=== PATIENT | female | born 1960 | race Caucasian/White ===

== ENCOUNTER 2019-07-18 01:22 | Day surgery (SDC) | payer BC, SELFPAY ==
[2019-07-15 13:57] VITALS: BMI 27.4
[2019-07-18 08:31] VITALS: BP 105/70; PULSE 74; RESP 16; TEMP 36.4; O2SAT 98
--- NOTE | 2019-07-18 08:41 | PM.IMHP ---
H&P: HPI History of Present Illness Chief complaint: Neoplasm screening Narrative: Chanel Gutiérrez is a 59 year old female presents for screening colonoscopy. Last colonoscopy was in 2008 and had internal hemorrhoids noted. She denies any acute bowel habit changes, diarrhea, constipation, melena, hematochezia, or abdominal pains. She does have rectal pressure at times but does not feel it often. Deneis any upper GI symptoms. Denies family hx of GI maligancies. Review of Systems Review of Systems: All systems reviewed & are unremarkable except as noted in HPI and below PMFSH Past Medical History Medical History (Updated 07/18/19 @ 08:43 by Charlene Reno, [employer]OTH TE[employer]) HLD (hyperlipidemia) Tear of medial meniscus of right knee Surgical History Surgical History (Updated 07/18/19 @ 08:43 by Charlene Reno, [employer]OTH [employer]) History of knee surgery Hx of colonoscopy Family History Family History (Updated 07/18/19 @ 08:44 by Charlene Reno, [employer]OTH [employer]) Sibling Family history of scoliosis Father HLD (hyperlipidemia) Other Family history of arthritis Social History Social History Smoking status: Never smoker Second hand tobacco smoke exposure: Yes Alcohol intake: never Gender identity (if verbalized by the patient): Female Meds Home Medications and Allergies Home Medications Medication Instructions Recorded Confirmed Type simvastatin 20 mg tablet 20 mg PO DAILY 04/24/19 07/18/19 History albuterol sulfate 90 mcg/actuation 1 inhalation INHALATION Q4H #1 04/30/19 07/15/19 Rx aerosol inhaler device Allergies Allergy/AdvReac Type Severity Reaction Status Date / Time Sulfa (Sulfonamide Allergy Unknown rash Verified 07/18/19 08:30 Antibiotics) Vital Signs Vital Signs - 24 hr 07/18/19 08:31 Temperature 36.4 C Pulse Rate 74 Respiratory Rate 16 Blood Pressure 105/70 Pulse Oximetry 98 Exam Const: General: cooperative, healthy appearing, comfortable, alert and awake Nutritional Appearance: average body habitus Orientation/consciousness: oriented to person, oriented to place, oriented to time and patient oriented x3 Limitations: no limitations HENMT: Head: normal to inspection and normocephalic Mouth: Yes Normal oral and palatal mucosa present and Yes moist mucous membranes Neck: Neck: normal visual inspection, supple and no JVD Carotids: no bruits Resp: Effort & Inspection: normal respiratory effort and no respiratory distress Auscultation: clear to auscultation bilaterally Cardio: Rate: regular rate Rhythm: regular rhythm Heart sounds: S1 normal heart sound present, S2 normal heart sound present, no gallops, no murmurs and no rubs GI: Inspection: normal to inspection GI Palp: No abdominal tenderness and No No hepatosplenomegaly present Percussion: Yes normal to percussion Auscultation: normal bowel sounds Rectal Exam: deferred Skin: General skin exam: normal color Lesions: no lesions Rashes: no rashes Neuro: General: oriented to person, oriented to place, oriented to time, patient oriented x3 and moves all extremities Cognition (Neuro): normal cognition Speech: normal speech Gait exam (Neuro): Normal gait present Extrem: General: normal to inspection Left lower extremity: no joint enlargement (mild edema noted to right knee) Psych: Appearance: grossly normal Mental Status: mental status grossly normal Speech and movement: Normal speech and movement present Affect: normal affect Attitude: cooperative Thought process: Normal thought process present Assessment and Plan Assessment and plan (1) Colon cancer screening: Code(s): Z12.11 - Encounter for screening for malignant neoplasm of colon Status: Acute Assessment and Plan: Very pleasant 59 yo here for screening colonoscopy to assess for neoplasms and polyps (2) HLD (hyperlipidemia): Code(s): E78.5 - Hyperlipidemia, unspecified S
[2019-07-18] MEDS: LACTATED RINGERS 1,000 ML 150 ML IV CONT (08:42)
[2019-07-18] MEDS: GENTAMICIN 80MG/SOD CHL 50 ML 80 MG/50 ML BAG 100 MG IVPB (08:55)
--- NOTE | 2019-07-18 09:00 | P.PNAN_ITS ---
Anes - Initial Pre Proc Eval Procedure: Operation Date: 07/18/19 09:30 Proposed Procedures p Screening Colonoscopy - Sreedhar Gonzalez DO Date/Time: 07/18/19 09:00 Surgeon: Sreedhar Gonzalez DO Pre Op Diagnosis: Neoplasm screening Patient Data Age: 59 Gender: F Height: 5 ft 8 in Weight: 79.8 kg Last Vital Signs Temp 97.6 F 07/18/19 08:31 Pulse 74 07/18/19 08:31 Resp 16 07/18/19 08:31 BP 105/70 07/18/19 08:31 Pulse Ox 98 07/18/19 08:31 Allergies Allergy/AdvReac Type Severity Reaction Status Date / Time Sulfa (Sulfonamide Allergy Unknown rash Verified 07/18/19 08:30 Antibiotics) Home Medications Medication Instructions Recorded Confirmed Type simvastatin 20 mg tablet 20 mg PO DAILY 04/24/19 07/18/19 History albuterol sulfate 90 mcg/actuation 1 inhalation INHALATION Q4H #1 04/30/1907/06 Rx aerosol inhaler device Patient hx anesthesia problems: none Family hx anesthesia problems: none PMFSH Past Medical History Medical History (Updated 07/18/19 @ 08:43 by Charlene Reno, INDUSTRIAL COMM[employer]CIAL GROUNDSK[employer]PER) HLD (hyperlipidemia) Tear of medial meniscus of right knee Surgical History Surgical History (Updated 07/18/19 @ 08:43 by Charlene Reno, IND[employer]DS[employer]PER) History of knee surgery Hx of colonoscopy Family History Family History (Updated 07/18/19 @ 08:44 by Charlene Reno, INDUSTRI[employer] COMMER[employer] GROUNDSK[employer]PER) Sibling Family history of scoliosis Father HLD (hyperlipidemia) Other Family history of arthritis Social History Social History Smoking status: Never smoker Second hand tobacco smoke exposure: Yes Alcohol intake: never Gender identity (if verbalized by the patient): Female Anes - Eval Final PreProcedure Day of Procedure 07/18/19 09:00 Patient weight: normal Heart: regular rate and rhythm Lungs: clear to auscultation Airway: Mallampati scale class II Neurological: alert and oriented Last oral intake: >/= 8 hours ASA classification: II Emergent: no Anesthetic plan: proceed Anesthesia type and monitoring: general GIVS and standard monitoring Informed Consent: The patient's anesthetic plan and its attendant risks and benefits were discussed with the patient/family/POA. Questions were solicited and answers provided to the satisfaction of the patient/family/POA.
[2019-07-18] MEDS: AMPICILLIN 2 GM/NS 100 ML 2 GM/100 ML BAG IVPB (09:10)
[2019-07-18 09:47] VITALS: BP 102/76; PULSE 77; RESP 21; O2SAT 98
[2019-07-18 09:57] VITALS: BP 129/78; PULSE 79; RESP 20; O2SAT 98
[2019-07-18 10:07] VITALS: BP 125/85; PULSE 69; RESP 15; O2SAT 97
== END 2019-07-18 10:26 | disposition home or self-care (01) ==
PROVIDERS: PCP Family Medicine; Visit Provider Internal Medicine Gastroenterology
PROC: 0DJD8ZZ Inspection of Lower Intestinal Tract, Via Natural or Artificial Opening Endoscopic (ICD-10-PCS; CPT 45378; principal; 2019-07-18 09:30)
DX: Z12.11 Encounter for screening for malignant neoplasm of colon (principal); D12.2 Benign neoplasm of ascending colon; K57.30 Diverticulosis of large intestine without perforation or abscess without bleeding; K64.8 Other hemorrhoids; E78.5 Hyperlipidemia, unspecified
CPT/HCPCS: 45385; 88305; J0290; J1580; J2704; J7120

== ENCOUNTER → 2019-08-01 10:40 | Outpatient (CLI) | payer BC, SELFPAY ==
--- NOTE | ~2019-08-01 | DEXA_ITS ---
Bone Density Report Name: Chanel Gutiérrez Age: 59 Sex: Female Ethnicity: White Date of : 1960 Indication: postmenopausal; screening for osteoporosis; height loss; Referring Provider: Emily, Renata Study: Bone densitometry was performed. Exam Date: August 01, 2019 Accession number: [id number] Bone Density: Region BMD T-score Z-score Classification AP Spine (L1-L4) 1.033 -0.1 1.4 Normal Femoral Neck (Left) 0.709 -1.3 0.1 Osteopenia Total Hip (Left) 0.795 -1.2 -0.2 Osteopenia Femoral Neck (Right) 0.673 -1.6 -0.2 Osteopenia Total Hip (Right) 0.762 -1.5 -0.4 Osteopenia Total Hip Mean 0.779 -1.4 -0.3 Osteopenia World Health Organization criteria for BMD impression classify patients as: Normal (T-score at or above -1.0), Osteopenia (T-score between -1.0 and -2.5), or Osteoporosis (T-score at or below -2.5). 10-year Fracture Risk(1): Major Osteoporotic Fracture 8.3% Hip Fracture 0.7% Reported Risk Factors: [place] (), Neck BMD=0.673, BMI=28.0 (1) FRAX(R) Version 3.08. Fracture probability calculated for an untreated patient. Fracture probability may be lower if the patient has received treatment. Previous Exams: Region Exam Age BMD T-score BMD Change BMD Change Date g/cm2 vs Baseline vs Previous AP Spine(L1-L4) 08/01/2019 59 1.033 -0.1 -0.166* -0.086* 05/26/2015 55 1.119 0.7 -0.080* -0.080* 05/09/2012 52 1.199 1.4 Total Hip(Left) 08/01/2019 59 0.795 -1.2 -0.156* -0.090* 05/26/2015 55 0.885 -0.5 -0.066* -0.066* 05/09/2012 52 0.951 0.1 Total Hip(Right) 08/01/2019 59 0.762 -1.5 -0.250* -0.159* 05/26/2015 55 0.921 -0.2 -0.091* -0.091* 05/09/2012 52 1.012 0.6 *Denotes significance at 95% confidence level, LSC for AP Spine = 0.022 g/cm2, LSC for Total Hip = 0.027 g/cm2 Clinical Information Provided by Patient: Has used the following medications: Vitamin D Patient maximum height was 68 Menopause Age: 52 No regular weight bearing exercise Does not regularly consume dairy products Onset of menses at age 11 Number of children 0 Impression: The patient has low bone mass, based on the Right Femoral Neck T-score. The patient has an estimated ten-year risk of hip fracture of 0.7% and an estimated ten-year risk of major fracture of 8.3%, based on the WHO FRAX algorithm. The BMD for
--- NOTE | ~2019-08-01 | MM_ITS ---
EXAMINATION: MM screening [facility] BI w ameya HISTORY: Screening mammogram TECHNIQUE: Craniocaudal and mediolateral oblique 3-D tomosynthesis images were obtained and synthetic 2-D images were generated. CAD analysis was submitted and interpreted. COMPARISON: Comparison to multiple prior studies sequentially, with oldest reviewed study dated 05/05. BREAST PARENCHYMAL COMPOSITION: There are scattered areas of fibroglandular density. FINDINGS: There is no evidence of suspicious mass, calcification, or architectural distortion to sugg est malignancy in either breast. There has been no suspicious interval change. IMPRESSION: 1. No mammographic evidence of malignancy. 2. Recommend routine screening mammography in one year. BI-RADS Category 1: Negative Reviewed, dictated and finalized at location A. BALER
== END ==
PROVIDERS: PCP Nurse Practitioner; Visit Provider Nurse Practitioner
DX: Z12.31 Encounter for screening mammogram for malignant neoplasm of breast (principal); Z78.0 Asymptomatic menopausal state; M85.852 Other specified disorders of bone density and structure, left thigh; M85.851 Other specified disorders of bone density and structure, right thigh
CPT/HCPCS: 77063; 77067; 77080

== ENCOUNTER → 2020-11-16 10:08 | Outpatient (CLI) | payer BC, SELFPAY ==
--- NOTE | ~2020-11-16 | MM_ITS ---
EXAMINATION: MM screening [facility] BI w ameya HISTORY: Screening mammogram TECHNIQUE: Craniocaudal and mediolateral oblique 3-D tomosynthesis images were obtained and synthetic 2-D images were generated. CAD analysis was submitted and interpreted. COMPARISON: 08/01/2019, 06/26/2018, 06/06/2017 BREAST PARENCHYMAL COMPOSITION: There are scattered areas of fibroglandular density. FINDINGS: There is no evidence of suspicious mass, calcification, or architectural distortion to sugg est malignancy in either breast. There has been no suspicious interval change. IMPRESSION: 1. No mammographic evidence of malignancy. 2. Recommend routine screening mammography in one year. BI-RADS Category 1: Negative Reviewed, dictated and finalized at location A.
== END ==
PROVIDERS: Visit Provider Nurse Practitioner
DX: Z12.31 Encounter for screening mammogram for malignant neoplasm of breast (principal)
CPT/HCPCS: 77063; 77067

== ENCOUNTER → 2021-11-18 09:53 | Outpatient (CLI) | payer BC, SELFPAY ==
--- NOTE | ~2021-11-18 | DEXA_ITS ---
Bone Density Report Name: DEE COOK Age: 61 Sex: Female Ethnicity: White Date of : 1960 Indication: osteopenia; height loss; postmenopausal Referring Provider: Emily, Renata Study: Bone densitometry was performed. Exam Date: November 18, 2021 Accession number: [id number] Bone Density: Region BMD T-score Z-score Classification AP Spine (L1-L4) 0.995 -0.5 1.2 Normal Femoral Neck (Left) 0.726 -1.1 0.3 Osteopenia Total Hip (Left) 0.798 -1.2 0.0 Osteopenia Femoral Neck (Right) 0.723 -1.1 0.3 Osteopenia Total Hip (Right) 0.775 -1.4 -0.2 Osteopenia Total Hip Mean 0.787 -1.3 -0.1 Osteopenia World Health Organization criteria for BMD impression classify patients as: Normal (T-score at or above -1.0), Osteopenia (T-score between -1.0 and -2.5), or Osteoporosis (T-score at or below -2.5). 10-year Fracture Risk(1): Major Osteoporotic Fracture 7.8% Hip Fracture 0.6% Reported Risk Factors: [place] (), Neck BMD=0.723, BMI=29.2 (1) FRAX(R) Version 3.08. Fracture probability calculated for an untreated patient. Fracture probability may be lower if the patient has received treatment. Previous Exams: Region Exam Age BMD T-score BMD Change BMD Change Date g/cm2 vs Baseline vs Previous AP Spine(L1-L4) 11/18/2021 61 0.995 -0.5 -0.204* -0.038* 08/01/2019 59 1.033 -0.1 -0.166* -0.086* 05/26/2015 55 1.119 0.7 -0.080* -0.080* 05/09/2012 52 1.199 1.4 Total Hip(Left) 11/18/2021 61 0.798 -1.2 -0.153* 0.003 08/01/2019 59 0.795 -1.2 -0.156* -0.090* 05/26/2015 55 0.885 -0.5 -0.066* -0.066* 05/09/2012 52 0.951 0.1 Total Hip(Right) 11/18/2021 61 0.775 -1.4 -0.237* 0.013 08/01/2019 59 0.762 -1.5 -0.250* -0.159* 05/26/2015 55 0.921 -0.2 -0.091* -0.091* 05/09/2012 52 1.012 0.6 *Denotes significance at 95% confidence level, LSC for AP Spine = 0.022 g/cm2, LSC for Total Hip = 0.027 g/cm2 Clinical Information Provided by Patient: Has used the following medications: Vitamin D, Calcium Patient maximum height was 68 Menopause Age: 52 No regular weight bearing exercise Does not regularly consume dairy products Onset of menses at age 11 Number of children 0 Impression: The patient has low bone mass, based on the Right Total Hip T-sc
--- NOTE | ~2021-11-18 | MM_ITS ---
EXAMINATION: MM screening [facility] BI w ameya HISTORY: Screening TECHNIQUE: Craniocaudal and mediolateral oblique 3-D tomosynthesis images were obtained and synthetic 2-D images were generated. CAD analysis was submitted and interpreted. COMPARISON: Comparison to multiple prior studies sequentially, with oldest reviewed study dated 05/06. BREAST PARENCHYMAL COMPOSITION: Breast composed of scattered areas of fibroglandular density FINDINGS: There is no evidence of suspicious mass, calcification, or architectural distortion to sugg est malignancy in either breast. There has been no suspicious interval change. IMPRESSION: 1. No mammographic evidence of malignancy. 2. Recommend routine screening mammography in one year. BI-RADS Category 1: Negative Reviewed, dictated and finalized at location A.
== END ==
PROVIDERS: PCP Family Medicine; Visit Provider Nurse Practitioner
DX: Z12.31 Encounter for screening mammogram for malignant neoplasm of breast (principal); Z13.820 Encounter for screening for osteoporosis; M85.852 Other specified disorders of bone density and structure, left thigh; M85.851 Other specified disorders of bone density and structure, right thigh
CPT/HCPCS: 77063; 77067; 77080

== ENCOUNTER 2022-08-10 14:30 | Outpatient (RCR) | payer BC, SELFPAY ==
[2022-06-14 09:30] VITALS: BMI 27.6
[2022-06-14 13:36] VITALS: BMI 27.6
== END 2022-08-10 17:51 | disposition home or self-care (01) ==
LOC: ANHDMC 14:30
PROVIDERS: PCP Family Medicine; Visit Provider Physician Assistant Medical
DX: E11.9 Type 2 diabetes mellitus without complications (principal); Z71.89 Other specified counseling; Z71.3 Dietary counseling and surveillance
CPT/HCPCS: 97802; 99199; G0108; G0109

== ENCOUNTER 2022-10-20 15:03 | Outpatient (RCR) | payer BC, SELFPAY | END 2022-10-24 12:20 | disposition home or self-care (01) | LOC: ANHDMC 15:03 | PROVIDERS: PCP Family Medicine; Visit Provider Physician Assistant Medical | DX: E11.9 Type 2 diabetes mellitus without complications (principal); Z71.89 Other specified counseling | CPT/HCPCS: G0109 ==

== ENCOUNTER → 2022-11-21 10:42 | Outpatient (CLI) | payer BC, SELFPAY ==
--- NOTE | ~2022-11-21 | MM_ITS ---
EXAMINATION: MM screening [facility] BI w ameya HISTORY: Screening mammogram TECHNIQUE: Craniocaudal and mediolateral oblique 3-D tomosynthesis images were obtained and synthetic 2-D images were generated. CAD analysis was submitted and interpreted. COMPARISON: 11/18/2021, 11/16/2020, 08/01/2019 bilateral screening mammogram examinations BREAST PARENCHYMAL COMPOSITION: There are scattered areas of fibroglandular density. FINDINGS: There is a biopsy marker on the left; history of prior benign left breast biopsy in 2009. S table fibroglandular asymmetry. There is no evidence of suspicious mass, calcification, or architectu ral distortion to suggest malignancy in either breast. There has been no suspicious interval change. IMPRESSION: 1. No mammographic evidence of malignancy. 2. Recommend routine screening mammography in one year. BI-RADS Category 1: Negative Reviewed, dictated and finalized at location A.
== END ==
PROVIDERS: PCP Family Medicine; Visit Provider Nurse Practitioner
DX: Z12.31 Encounter for screening mammogram for malignant neoplasm of breast (principal)
CPT/HCPCS: 77063; 77067

== ENCOUNTER → 2022-11-21 10:44 | Outpatient (CLI) | payer BC, SELFPAY ==
--- NOTE | ~2022-11-21 | US_ITS ---
US thyroid INDICATION: Thyroid nodule TECHNIQUE: Real-time sonographic images of the thyroid gland were obtained. COMPARISON: No prior studies for comparison. FINDINGS: The right thyroid lobe measures 3.9 x 1.7 x 1.4 cm. The left thyroid lobe measures 4.4 x 1 .9 x 1.4 cm. There is a hypoechoic left thyroid mass which is mostly solid, hypoechoic, circumscribed , wider than tall without echogenic foci measuring 9 mm, TR 4. Normal vascular flow is present. IMPRESSION: 1. Left thyroid nodule measuring 9 mm, TR 4. No discrete mass identified which meet sonographic crit eria for biopsy. Reviewed, dictated and finalized at location [] IMPRESSION: 1. Left thyroid nodule measuring 9 mm, TR 4. No discrete mass identified which meet sonographic criteria for biopsy.
== END ==
PROVIDERS: PCP Family Medicine; Visit Provider Physician Assistant Medical
DX: E04.1 Nontoxic single thyroid nodule (principal)
CPT/HCPCS: 76536

== ENCOUNTER → 2023-03-03 12:38 | Outpatient (CLI) | payer BC, SELFPAY ==
--- NOTE | ~2023-03-03 | CT_ITS ---
EXAMINATION: CT soft tissue neck chest w DATE: 03/03/2023 13:45 INDICATION: Localized swelling, mass and lump, neck. TECHNIQUE: Computed tomography (CT) of the neck and chest was performed with 75 mL Omnipaque-350 intr avenous contrast. Automated exposure control and iterative reconstruction technique were employed. Th e dose-length product was 892.81 mGy-cm. COMPARISON: neck CT 12/22/15 FINDINGS: CT NECK: There are likely changes of ocular lens replacement surgeries. There is a 2.8 x 2.2 cm left supraclavicular lymph node. A skin marker overlies this area. There is mild plaque in the proximal in ternal carotid arteries with 0% stenosis relative to normal distal artery lumen diameters. There is m ucosal thickening in the paranasal sinuses. The mastoid air cells are normal. There is severe cervica l spondylosis. CT CHEST: The lungs demonstrate mild atelectasis. There is mild bronchiectasis in the inferior lungs. No pleural effusion. The heart size is normal. There are coronary artery calcifications. No pericard ial effusion. There is a 1.4 cm cyst in left kidney. There is severe thoracic spondylosis. IMPRESSION: 1. Enlarged left supraclavicular lymph node suspicious for lymphoma or metastatic disease. Ultrasound -guided core biopsy is recommended. Reviewed, dictated and finalized at location E. IMPRESSION: 1. Enlarged left supraclavicular lymph node suspicious for lymphoma or metastat ic disease. Ultrasound-guided core biopsy is recommended.
[2023-03-03 13:16] LABS: Estimated Glomerular Filt Rate > 60
== END ==
PROVIDERS: PCP Physician Assistant Medical; Visit Provider Physician Assistant Medical
DX: R22.1 Localized swelling, mass and lump, neck (principal)
CPT/HCPCS: 70491; 71260; Q9967

== ENCOUNTER 2023-09-17 12:14 | Emergency (ER) | payer BC, SELFPAY ==
[2023-09-17 12:20] VITALS: BP 119/70; PULSE 86; RESP 16; TEMP 36.6; O2SAT 99
--- NOTE | 2023-09-17 12:40 | ED.FEMALEGU ---
HPI - Female Genitourinary General Chief complaint: Urogenital-Female Stated complaint: Uti Symptoms Time Seen by Provider: 09/17/23 12:31 Source: patient and RN notes reviewed Mode of arrival: ambulatory Limitations: no limitations History of Present Illness HPI Narrative: 63-year-old female presents concern for 1 day history of 1 day history of burning, suprapubic pressure, frequency. Denies fever, body aches, chills, sweats, nausea, vomiting MD elicited complaint: UTI Related Data Allergies Allergy/AdvReac Type Severity Reaction Status Date / Time Sulfa (Sulfonamide Allergy Unknown rash Verified 09/17/23 12:25 Antibiotics) Review of Systems Review of Systems: CONSTITUTIONAL: Denies malaise, chills, sweats, or fever. CARDIOVASCULAR: Denies chest pain, palpitations, or edema. RESPIRATORY: Denies cough or dyspnea. GASTROINTESTINAL: Denies abdominal pain, nausea, vomiting, diarrhea GENITOURINARY: Reports dysuria, frequency, urgency, suprapubic pressure. Denies flank pain or hematuria. SKIN: Denies rash or itching. MUSCULOSKELETAL: Reports right back pain. Denies myalgia. All systems reviewed & are unremarkable except as noted in HPI and below PMFSH Past Medical History Medical History (Updated 09/17/23 @ 12:40 by Sneha Powell NP) HLD (hyperlipidemia) Lymphoma Follicular, dx 03/2023 Tear of medial meniscus of right knee Type 2 diabetes mellitus Surgical History Surgical History History of cataract surgery History of knee surgery Hx of colonoscopy Family History Family History Sibling Family history of scoliosis Father HLD (hyperlipidemia) Other Family history of arthritis Social History Social History Smoking status: Never smoker Second hand tobacco smoke exposure: Yes Alcohol intake: never Substance use: never Substance use type: does not use Lack of Transportation: No Lack of Food: Never True Current Housing: I Have Housing Concerned About Future Housing: No Difficulty Paying Gas/Electric Bills: No Difficulty Paying for Meds: No Currently Unemployed: No Education: High School Diploma/GED Difficulty w/ Childcare or Family Care: No Living arrangements: with family Gender identity (if verbalized by the patient): Female Sexual Orientation (if Verbalized by the Patient): Straight or Heterosexual Spiritual care concerns: No Agree to blood products: Yes Comments At time of signature, agree with nursing past medical, surgical, social and family history. There is no relevant family history pertinent to the presenting complaint Exam Narrative: GENERAL: Well-appearing, well-nourished, and in no acute distress. HEAD: Normocephalic. EYES: PERRLA, conjunctivae clear. NECK: Supple. No lymphadenopathy CHEST: Clear to auscultation. No respiratory distress. HEART: Regular rate and rhythm. ABDOMEN: Soft, nontender upon palpation, nondistended, normal active bowel sounds, no palpable or pulsatile masses, no guarding. No CVA tenderness SKIN: Warm, dry, no rash. NEURO: Alert and oriented x3. PSYCH: Normal mood and affect Course Course Emergency Course: Patient is aware of diagnosis, understands and agrees to treatment plan. Anticipatory guidance given. Patient agrees to follow-up as directed and is aware of reasons to seek care at the emergency department. Portions of this record may have been created with voice recognition software Level of Care: Express Care Visit Vital Signs Vital signs: Vital Signs Temperature 98 F 09/17/23 12:20 Pulse Rate 86 09/17/23 12:20 Respiratory Rate 16 09/17/23 12:20 Blood Pressure 119/70 09/17/23 12:20 Pulse Oximetry 99 09/17/23 12:20 Temperature 98 F 09/17/23 12:20 Pulse Rate 86 09/17/23 12:20 Respiratory Rate
== END 2023-09-17 12:43 | disposition home or self-care (01) ==
PROVIDERS: Emergency Provider Nurse Practitioner; PCP Family Medicine
DX: N39.0 Urinary tract infection, site not specified (principal); B96.20 Unspecified Escherichia coli [E. coli] as the cause of diseases classified elsewhere; E78.5 Hyperlipidemia, unspecified; E11.9 Type 2 diabetes mellitus without complications; C82.90 Follicular lymphoma, unspecified, unspecified site
CPT/HCPCS: 81003; 87077; 87086; 87088; 87186; 99213; G0463

== ENCOUNTER 2023-10-10 12:33 | Outpatient (CLI) | payer BC, SELFPAY ==
--- NOTE | ~2023-10-10 | US_ITS ---
EXAMINATION: US transvaginal DATE: 10/10/2023 12:57 INDICATION: Pelvic pain. TECHNIQUE: Multiple transvaginal sonographic images of the pelvis were obtained. COMPARISON: None. FINDINGS: The uterus measures 3.9 x 2.3 x 2.1 cm. There is a 2.1 cm intramural fibroid. There is no free fluid in the pelvis. The endometrial complex measures 4 mm in thickness. The ovaries are not visualized. IMPRESSION: 1. 2.1 cm uterine fibroid. 2. Ovaries not visualized. Reviewed, dictated and finalized at location A.
== END 2023-10-10 12:34 ==
LOC: MICIMG 12:34
PROVIDERS: PCP Nurse Practitioner; Visit Provider Nurse Practitioner
DX: R10.2 Pelvic and perineal pain (principal); D25.9 Leiomyoma of uterus, unspecified
CPT/HCPCS: 76830

== ENCOUNTER 2024-01-29 11:02 | Outpatient (CLI) | payer BC, SELFPAY ==
--- NOTE | ~2024-01-29 | MM_ITS ---
EXAMINATION: MM screening [facility] BI w ameya HISTORY: Screening TECHNIQUE: Craniocaudal and mediolateral oblique 3-D tomosynthesis images were obtained and synthetic 2-D images were generated. CAD analysis was submitted and interpreted. COMPARISON: Comparison to multiple prior studies sequentially, with oldest reviewed study dated 07/2017. BREAST PARENCHYMAL COMPOSITION: Not dense: There are scattered areas of fibroglandular density. FINDINGS: There is no evidence of suspicious mass, calcification, or architectural distortion to sugg est malignancy in either breast. There has been no suspicious interval change. IMPRESSION: 1. No mammographic evidence of malignancy. 2. Recommend routine screening mammography in one year. BI-RADS Category 1: Negative Reviewed, dictated and finalized at location B.
== END 2024-01-29 11:03 ==
LOC: MICIMG 11:02
PROVIDERS: PCP Nurse Practitioner; Visit Provider Nurse Practitioner
DX: Z12.31 Encounter for screening mammogram for malignant neoplasm of breast (principal)
CPT/HCPCS: 77063; 77067

== ENCOUNTER 2024-08-09 10:59 | Outpatient (CLI) | payer BC, SELFPAY ==
--- NOTE | ~2024-08-09 | CT_ITS ---
CT sinus wo con Ordering provider: Tequila Weaver, DETENTION OFFICER History: . Chronic sinusitis, unspecified . Comparison: None. Technique: Thin slice Scans CT of the paranasal sinuses was performed with coronal and sagittal refor matted images. No IV contrast. . Automated exposure control and iterative reconstruction technique w ere employed. The dose-length product was 297.70 mGy-cm. Findings: NASAL SEPTUM: Very Mild right nasal septal deviation. OSTEOMEATAL UNITS: Bilaterally patent. NASAL TURBINATES AND NASOPHARYNX: Normal. PARANASAL SINUSES: Right frontal sinus disease. VISUALIZED MASTOIDS: Normal as visualized. BONES: Normal. SUPERFICIAL SOFT TISSUES/VISUALIZED BRAIN PARENCHYMA: Normal. IMPRESSION: Right frontal sinus disease. Reviewed, dictated and finalized at location A. CARE ATTENDANT
== END 2024-08-09 11:00 | disposition home or self-care (01) ==
LOC: MICIMG 11:02
PROVIDERS: PCP Nurse Practitioner; Visit Provider Nurse Practitioner Family
DX: J32.1 Chronic frontal sinusitis (principal)
CPT/HCPCS: 70486

== ENCOUNTER 2024-09-04 09:35 | Outpatient (CLI) | payer BC, SELFPAY ==
--- NOTE | ~2024-09-04 | XR_ITS ---
MODIFIED ESOPHAGRAM HISTORY: Dysphagia. TECHNIQUE: Modified barium esophagram was performed on 09/04/2024. I administered fluoroscopy and perfo rmed the exam with speech pathologist. Patient was seated for lateral fluoroscopic imaging for inges tion of thin liquids, pudding, solids and quantified amounts, followed by thin liquids in uncontrolle d amounts. This was recorded on tape. A single fluoroscopic spot image was also recorded. The DAP for this procedure was 1.5 Gycm2. The amount of fluoroscopy time used during this procedure was 1.8 anirudh ned. FINDINGS: Oral stage: Adequate function. Pharyngeal stage: Transient/flash laryngeal penetration without aspiration. Cervical/esophageal stage: Adequate function. IMPRESSION: Transient/flash laryngeal penetration without aspiration. Please correlate with speech pa thologist findings and specific feeding recommendations. Reviewed, dictated and finalized at location A. IMPRESSION: Transient/flash laryngeal penetration without aspiration. Please co rrelate with speech pathologist findings and specific feeding recommendations.
--- OUTSIDE RECORDS SUMMARY | 2024-09-04 10:25 | XMS_ITS | Encounter Summary ---
Author Organization [facility] Address [address] [place] [address] Care Team Providers Care Button Puncher Name Role Phone Magi Castro MD Primary Care Provider [phone] Encounter Details Date Type Department Care Team (Late st Contact Info) Description 04/15/2021 Lab Requisition [facility] DermPath Lab [address] [place] [address] Cristofer Corbett MD [address] [place] [address] Social History Tobacco Use Types Packs/Day Years Used Date Smoking Tobacco: Never Assessed Sex and Gender Information Value Date Recorded Sex Assigned at Not on file Gender Identity Not on file Sexual Orientation Not on file documented as of this encounter Plan of Treatment Not on file documented as of this encounter Procedures Procedure Name Priority Date/Time Associated Diagnosis Comments DERMATOPATHOLOGY Routine 04/14/2021 12:0 0 AM CLAY MINER documented in this encounter Results * DERMATOPATHOLOGY (04/14/2021 12:00 AM CLAY MINER) Case Report Dermatopathology Report Case: [id number] Authorizing Provider: Cristofer Corbett MD Collected: 04/14/2021 12:00 AM Ordering Location: [facility] D[facility]Path Lab Received: 04/15/2021 12:53 PM Pathologist: Alisson Grace MD Specimens: A) - Skin, midline lumbar back B) - Skin, left para lumbar back 2:24 PM [facility] Final Diagnosis Specimen A. SKIN, midline lumbar back: EPIDERMOID CYST (L72.0) Specimen B. SKIN, left para lumbar back: DILATED PORE OF NIKKI (L70.8) 2:24 PM [facility] DERMATOPATHOLOGY LABORATORY Clinical History A-B: R/O neoplasm. 2:24 PM [facility] DERMATOPATHOLOGY LABORATORY Gross Description Specimen A: Received is one formalin filled container labeled with the patient's name and designated midline lumbar back. The specimen consists of a punch biopsy measuring [id number], bisected. Jar 0. Specimen B: Received is one formalin filled container labeled with the patient's name and designated left para lumbar back. The specimen consists of a punch biopsy measuring [id number], bisected. Jar 0. 2:24 PM [facility] DERMATOPATHOLOGY LABORATORY Microscopic Description Specimen A. SKIN, midline lumbar back: Within the dermis, there is a space lined by epithelium that resembles normal epidermis and the infundibular portion of the hair follicle. Specimen B. SKIN, left para lumbar back: There is a central, broad epidermal invagination lined by epithelium with a prominent rete pattern. 2:24 PM [facility] DERMATOPATHOLOGY LABORATORY Disclaimer An external and internal positive and negative controls are appropriate for the histochemical, immunohistochemical and immunofluorescence stain(s) in this case (if any), except where stated explicitly. The performance characteristics of the stain(s) cited in this report were developed and its performance characteristic determined by the Dermatopathology Laboratory at [facility], directed by Dr. Augustina Grace. These tests need not be, and therefore are not, approved by the [place] Food and Drug Administration. The tests are used for clinical purposes. Billing Codes Specimen Charges Stain Charges 11805 42523 1 1 2:24 PM [facility] Embedded Images 2:24 PM [facility] Pathology/Cytology TISSUE SPECIMEN FROM SKIN / Unknown 04/14/2021 04/15/2021 12:53 PM C[facility]ER Miscellaneous samples (specimen) TISSUE SPECIMEN FROM SKIN / Unknown 04/14/2021 04/15/2021 12:53 PM C[facility]ER Cristofer Corbett MD LAB - PATHOLOGY/CYTO LOGY [facility] DERMATOPATHOLOGY LABORATORY [facility] - Department of Dermatology [facility] [address] [place] [address], [address] [phone] documented in this encounter Visit Diagnoses Not on filedocumented in this encounter Care Teams Button Puncher Relationship Specialty Start Date End Date Magi Castro MD [address] [place] [address] PCP - General 07/19/19 documented as of this encounter
--- OUTSIDE RECORDS SUMMARY | 2024-09-04 10:25 | XMS_ITS | Data Portability ---
Author Organization [facility], Main Office Address [address] [place] [address] Care Team Providers Care Shipping And Receiving Supervisor Name Role Phone ANNIA MANRIQUE Primary Care Provider [phone] ANNIA MANRIQUE Referring Provider [phone] Assessment No assessment recorded. Plan of Treatment Reminders Order Date Submit Date Provider Last Modified By Organization Details Last Modified Time Details Appointments Procedure 15 2024 09:30A M Flaco Muse MD Not available Not available Not available Post-Op 15 2024 10:00A M DIEGO Hernández Not available Not available Not available Lab None recorded. Referral None recorded. Procedures None recorded. Surgeries endoscopy , nasal/sin us, with frontal sinus explorati on (SURG) 2024 025 Not available 08/28/2024 09:46:12 Imaging None recorded. Medication Orders Medrol (Corbin) 4 mg tablets in a dose pack [address] [facility] [place], [address], 08/22/2024 08:55:57 cefdinir 300 mg capsule [address] [facility] [place], [address], 08/22/2024 08:55:54 Diflucan 150 mg tablet 2024 025 [facility] [address] [place], [address], 07/31/2024 15:12:11 Patient TargetsNo targets recorded. Patient Instructions Encounter Date Encounter Id Patient Instructions Last Modified By Organization Details Last Modified Time 07/31/2024 [id number] Patient prescrib ed Medrol Dosepak and cefdinir for antimicrobial coverage and inflammation reduction. She will have a sinus CT completed. We will follow up when those results become available. Not available 07/31/2024 15:12:42 Reason for Referral None Reported. Results Created Date Observation Date Name Description Value Unit Range Abnormal Flag Note LastModifiedBy Organization Detail LastModifiedTime 08/20/1908/09/2024 CT, sinus es, w/o contr ast No observ ation record ed. [facility] [address], [place], [address], 08/19/2024 11:01:10 Result Notes None recorded. Problems Name Problem SNOMED Code Status Onset Date Resolution Date Notes Provider Name and Address Organization Details Recorded Time Disorder of bursa of shoulder region 58882477 Active Not Available [facility] 3 13:30:42 Chronic sinusitis 98606081 Active 2024 Tequila Washington RN null, [facility] [employer] 5 15:04:45 Chronic sinusitis 14090958 Active 2024 DIEGO Hernández [address], [place], [address] , [facility] [employer] [facility] 5 15:11:08 Dysfunctio n of right eustachian tube 5114263198026 101 Active 2024 DIEGO Hernández [address], [place], [address] , [employer] [facility] 5 15:12:13 Chronic frontal sinusitis 83748139 Active 2024 Flaco Muse MD [address], [place], [address] , [facility] [employer] [facility] [employer] [facility] 5 14:32:43 Dysphagia 49341964 Active 2024 Flaco Muse MD [address], [place], [address] , [facility] [employer] 14:32:50 Problem Notes None recorded. Procedures Surgical History None recorded. Imaging Results Imaging Date Name Status LastModified by Organiz ation Details LastModified Time 08/09/2024 CT, sinuses, w/o contrast completed [facility] [address], [place], [address], 08/19/2024 11:01:10 Procedure Notes None recorded. Medical Equipment None Reported. Allergies Allergen ID Allergen Name Allergen Category Reaction Reaction Severity Criticality Documentation Date Start Date Code Code System Note Provider Name and Address Organization Details Recorded Time 00590 Substance with sulfonami de structure and antibacte rial mechanism of action (substanc e) medicatio n Not available Not available Not available 07/31/2024 78990 8003 SNOMED RASH A CHILD Tequila Washington RN [facility], [facility] [employer] [facility] 14:33:19 Medications Name Sig Start Date Stop Date Status Note LastModified by Organization Details LastModified Time fluconazole 150 mg tablet TAKE 1 TABLET BY MOUTH ONCE DAILY active Not Available Not Available No t Available prednisone 20 mg tablet 07/31 completed Not Available Not Available Not Available clobetasol 0.05 % topical cream APPLY TO THE AFFECTED AREA(S) ONCE WEEKLY 07/31 completed Not Available Not Available Not Available valacyclovi r 500 mg tablet TAKE 1 TABLET BY MOUTH TWICE DAILY FOR 3 DAYS 07/31 completed Not Available Not Available Not Available simvastatin 20 mg tablet TAKE 1 TABLET BY MOUTH DAILY active Not Available Not Available No t Available estradiol 0.01% (0.1 mg/gram) vaginal cream INSERT 1 GRAM VAGINALLY TWICE WEEKLY 07/31 completed Not Available Not Available Not Available levofloxaci n 750 mg tablet TAKE 1 TABLET BY MOUTH ONCE DAILY FOR 10 DAYS 07/31 completed Not Available Not Available Not Available methylpredn isolone 4 mg tablets in a dose pack TAKE BY MOUTH DIRECTED ON INSIDE OF PACKAGE 08/22 completed Not Available Not Available Not Available cefdinir 300 mg capsule TAKE 1 CAPSULE BY MOUTH EVERY 12 HOURS FOR 10 DAYS 08/22 completed Not Available Not Available Not Available amoxicillin 875 mg-potassiu m clavulanate 125 mg tablet TAKE 1 TABLET BY MOUTH EVERY 12 HOURS FOR 10 DAYS 07/31 completed Not Available Not Available Not Available nitrofurant oin monohydrate /macrocryst als 100 mg capsule TAKE 1 CAPSULE BY MOUTH TWICE DAILY WITH FOOD FOR 5 DAYS 07/31 completed Not Available Not Available Not Available ProAir HFA 90 mcg/actuati on aerosol inhaler 07/31 completed Not Available Not Available Not Available Paxlovid 300 mg (150 mg x 2)-100 mg tablets in a dose pack TAKE 3 TABLETS TOGETHER (TWO 150 MG NIRMATREL VIR TABLETS AND ONE 100 MG RITONAVIR TABLET) BY MOUTH TWICE DAILY FOR 5 DAYS. 07/31 completed Not Available Not Available Not Available Vitals Date Recorded Body weight Body mass index (BMI) Body height Body temperature Provider Name and Address Organization Details Last Updated DateTime 07/31/2024 25983.93 g 26.2 kg/m2 170.18 cm 98 [degF] Tequila Washington RN [facility] [employer] [facility] 07/31/2024 14:36:52 Date Recorded Body height Body mass index (BMI) Body weight Body temperature Provider Name and Address Organization Details Last Updated DateTime 08/22/2024 170.18 cm 26.3 kg/m2 73763.52 g 97.1 [degF] Isa Staples [facility] [employer] [facility] 08/22/2024 14:09:04 Social History Question Answer Notes LastModified by Organizat ion Details LastModified Time Tobacco Smoking Status Never Smoker Tequila Washington RN [facility], [facility] [employer] [facility] 07/31/2024 14:34:34 What Is Your Level Of Alcohol Consumption? None Information not available 07/31/2024 Sex: Unknown Functional Status None recorded. Mental Status None recorded. Family History Relationship Description Onset Age of this Age Resolved Age Notes LastModified by Organization Details LastModified Time Brother Pain of ear Not avail able 07/31/2024 14:32:16 Medical History No medical history recorded. Gynecological HistoryNo gynecological history recorded. Obstetrics History GPAL:G 0 P 0 0 0 0 Past Encounters Encounter ID Performer Location Encounter Start Date Encounter Closed Date Diagnosis/Indication Diagnosis SNOMED-CT Code Diagnosis ICD10 Code Diagnosis Note [id number] DIEGO Hernández [facility] [place] [address] [place] [address] 07/31/2024 14:15:14 07/31/2024 15:13:20 Chronic sinusitis 96656496 J32.9 Dysfunctio n of right eustachian tube 0498892353 828438 H69.91 [id number] Flaco Muse MD [facility] [place] [address] [place] [address] 08/22/2024 14:01:08 08/28/2024 15:26:22 Chronic frontal sinusitis 34343616 J32.1 Dysphagia 70006139 R13.1 0 Health Concerns Section Related Observation LastModified by Organization Detai ls LastModified Time None Recorded Concern Status LastModified by Organization Details LastModified Time None Recorded Advance Directives Directive None Recorded Payers Encounter Date Sequence Insurance Name Policy Number Policy Freedman Covered Member ID Freedman Member ID Guarantor Name 07/31/2024 1 [place] [id number] Lance Gutiérrez [id number] Chanel Gutiérrez 08/22/2024 1 [place] [id number] Lance Gutiérrez [id number] Chanel Gutiérrez Notes Date Note Type Note Provider Name and Address Organization Details Recorded Time 07/31/2024 text/html This patient has a past medical history significant for lymphoma. She presents to the office with a complaint of epistaxis intermittently that began on 07/13/2024. She reports that the episodes occur from her right nostril and have last anywhere from 10-20 minutes. States that her last epistaxis episode was yesterday. She also does report PND that has been present for years with associated sinus pressure. She reports blowing her nose in which a membrane extruded. She also reports right otalgia. she does report use saline nasal spray and Ice packs on the bridge of the nose.denies use of any intranasal corticosteroids. She has not been on any recent steroids and/or antibiotics. She has not had any recent imaging done. DIEGO Hernández [address], [place], [address], [employer] 07/31/2024 15:12:46 08/22/2024 text/html this patient has had epistaxis and a sinus CT demonstrated right frontal sinusitis and a very mild septal deviation. In addition she reports dysphagia for pills and some solids. Flaco Muse MD [address], [facility] [address], [place], [address], [employer] 08/22/2024 14:33:27 OBGyn Episode No OBEpisode recorded.
--- OUTSIDE RECORDS SUMMARY | 2024-09-04 10:25 | XMS_ITS | Clinical Summary ---
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 Gender Identity Not on file Sexual Orientation Not on file Plan of Treatment Health Maintenance Due Date Last Done Comments DEXA Bone Density 1960 Hepatitis C Virus (HCV) Screening 1960 TdaP Immunization 1958 Pap Smear 1979 Cervical Cancer Screening (CCS) 01/22/1988 HPV/Cotest 01/22/1988 Colonoscopy 2003 Colorectal Cancer Screening 2003 Cologuard 01/22/2008 Immunochemical Fecal Occult Blood 01/22/2008 Mammogram 01/22/2008 Pneumococcal Immunization (5 0+ years) (1 of 1 - PCV) 01/22/2008 Zoster Immunization (1 of 2) 01/22/2008 Influenza Immunization (#1) 2024 SARS-COV-2 Immunization (1 - 2023-25 season) 2024 Respiratory Syncytial Virus (RSV) Immunization (Adult) (1 - 1-dose 75+ series) 2033 Hepatitis B Immunization Aged Out No longer eligible based on patient's age to complete this topic Meningococcal Immunization (ACWY) Aged Out No longer eligible based on patient's age to complete this topic Rotavirus Immunization Aged Out No lo nger eligible based on patient's age to complete this topic Insurance [facility] Care Teams Help Desk Internship Relationship Specialty Start Date End Date Magi Castro MD [address] [id number] PCP - General Family Medicine 04/24/19 Erin Garcia MD [address] [place] [address] Obstetrics & Gynecology 04/24/19
--- OUTSIDE RECORDS SUMMARY | 2024-09-04 10:25 | XMS_ITS | Continuity of Care Document ---
Author Organization [facility] Address [address] [place] [address] [address] [place] [address] Phone Care Team Providers Care Vinyl Flooring Installer Name Role Phone Perez BECKWITH, Wood Unavailable Unavaila ble Procedures Procedure Date CATARACT SURG W/IOL, 1 STAGE POSTOP FOLLOW-UP VISIT CATARACT SURG W/IOL, 1 STAGE OFFICE/OUTPATIENT VISIT, [facility] OPHTHALMIC BIOMETRY Advance Directives Directive Yes / No Effective Date File Name No Information Encounters Encounter Description Practice Location Reason(s) For Visit Diagnoses Date Provider Providers Copied on Encounter [facility], [address] [place] [address], [id number], [place] tel:[phone] [facility] No Information 7 Perez Muir. [address] [facility], [address], [place], [place], [id number], [place]. tel:[phone] Referring Provider: Wood luong, [address], [place], [address] . tel:[phone] [facility], [address] [place] [address], [id number], [place] tel:[phone] [facility] glare (chief complaint) Age-related nuclear cataract, left eyePresence of pseudophakia 7 Perez Muir. [address], [address], [place], [place], [id number], [place]. tel:[phone] Referring Provider: Wood luong, [address], [place], [address] . tel:[phone] [facility], [address] [place] [address], [id number], tel:[phone] [facility] No Information 7 Perez Wood. [address], [address], [place], [id number], . tel:[phone] Referring Provider: Wood luong, [address], [place], [address] . tel:[phone] OFFICE/OUTPA TIENT VISIT, [facility], [address] [place] [address], [id number], tel:[phone] [facility] No Information 7 Krlucaamy Wood. [address], [address], [place], [place], [id number], . tel:[phone] Referring Provider: Wood luong, [address], [place], [address] . tel:[phone] Family History Family Member Type Diagnosis Age At Onset No Information Payers Payer name Insurance type Covered constitution party ID Authoriza tion(s) No Information Social History Type Description Quantity Date Captured Comments Sex Female Smoking Status No Information Chief Complaint And Reason For Visit No Information Reason For Referral Reason For Referral No Information History Of Present Illness Encounter Date Complaint History Of Prese nt Illness glare The 57 year old female presents for evaluation of glare in the right eye and left eye. It started about 1 year(s) ago. It affects OS. The symptom is constant. The condition is significant. Pt C/O glare and bright being extremely bothersome at night. Pt is here today for repeat IOL measurements. S/P PC IOL OD. Functional Status Date Functional Assessmen t No Information Instructions Date Instruction Additional Infor mation Impression/Plan - Di scussed all risks, benefits, procedures and recovery. Patient understands changing glasses will not improve vision. Patient desires to have surgery, recommend phacoemulsification with intraocular lens.Standard Distance OS Related to Age-related nuclear cataract, left eye Impression/Plan - St able will continue to observe. Related to Presence of pseudophakia Follow up - RTO for surgery Assessments Type Assessment Date No Information Patient Care Teams Name Effective Dates (start - stop) Status Members No Information
--- OUTSIDE RECORDS SUMMARY | 2024-09-04 10:25 | XMS_ITS | Clinical Summary ---
Author Organization [facility] Address [address] [place] [address] Care Team Providers Care Clay Processing Factory Worker Name Role Phone Magi Castro MD Primary Care Provider [phone] Source Comments [facility],non-owned Affiliates and Associated Physician Practices is amultiple site organization consisting of ambulatory clinics and hospital sitesin [place], [place], [place] and [place]. This disclosure is being madepursuant to the Care Everywhere program and may not contain all information available regarding this patient. Last updated 18.[facility] [employer] Social History Tobacco Use Types Packs/Day Years Used Date Smoking Tobacco: Never Assessed Sex and Gender Information Value Date Recorded Sex Assigned at Not on file Gender Identity Not on file Sexual Orientation Not on file Plan of Treatment Health Maintenance Due Date Last Done Comments BONE DENSITY TESTING 1960 COLOGUARD (AGES 45-75) - COL ON CA SCREENING 1958 COLON MONITORING 1958 COLONOSCOPY - COLON CA SCREENING 1958 CT COLONOGRAPHY - COLON CA SCREENING 1958 Colorectal Cancer Screening 1958 FIT - COLON CA SCREENING 1958 FLEX SIG - COLON CA SCREENING 1958 LIPID TESTING 1958 MAMMOGRAM 1958 HEPATITIS C SCREENING 01/17/1976 DTAP/TDAP/TD VACCINES (1 - Tdap) 1977 PNEUMOCOCCAL VACCINE 50+ (1 of 1 - PCV) 01/22/2008 ZOSTER VACCINE (1 of 2) 01/22/2008 COVID-19 VACCINE ( - 2023-2 5 season) 2024 INFLUENZA VACCINE (#1) 2024 DEPRESSION SCREENING 06/05/2024 Respiratory Syncytial Virus (RSV) Vaccine Pt: or over 60 yrs (1 - 1-dose 75+ series) 2033 HEPATITIS B VACCINE Aged Out No longe r eligible based on patient's age to complete this topic HIB VACCINE Aged Out No longer eligi ble based on patient's age to complete this topic HPV VACCINE Aged Out No longer eligi ble based on patient's age to complete this topic MENINGOCOCCAL (Group B) VACC INE SHARED DECISION-MAKING Aged Out No longer eligibl e based on patient's age to complete this topic MENINGOCOCCAL GROUPS A/C/Y/W VACCINE Aged Out No longer eligible b ased on patient's age to complete this topic Care Teams [employer] Processing Factory Worker Relationship Specialty Start Date End Date Magi Castro MD [address] [place] [address] PCP - General 07/19/19
--- OUTSIDE RECORDS SUMMARY | 2024-09-04 10:25 | XMS_ITS | Referral Summary ---
Author Organization [facility] Address [address] [place] [id number] Care Team Providers Care Supervisor Industrial Garment Name Role Phone Magi Castro MD Primary Care Provider [phone] Allergies Active Allergy Reactions Criticality Noted Date Comments Sulfa (Sulfonamide Antibiotics) Rash Medium 01/04 Medications simvastatin (ZOCOR) 20 mg tabletIndicatio ns:hyperlipidem ia Take 20 mg by mouth nightly 8 Active cholecalciferol (VITAMIN D-3) 1,000 unitIndications :Prevention of Vitamin D Deficiency Take 2,000 Units by mouth nightly Active clobetasoL (TEMOVATE) 0.05 % ointment APPLY TO THE AFFECTED AREA(S) ONCE EVERY 7 DAYS 0 Active COQ10, UBIQUINOL, ORAL 4 Active tretinoin (RETIN-A) 0.025 % cream APPLY PEA SIZE AMOUNT OF CREAM TOPICALLY TO FACE ONCE DAILY AT BEDTIME 1 Active Active Problems Problem Noted Date Diagnosed Date Primary osteoarthritis of left knee 03/25/2019 Overview (03/25/2019): Added automatically from request for surgery [id number] Primary osteoarthritis of right knee 03/25/2019 Overview (04/26/2019): Added automatically from request for surgery [id number] Primary osteoarthritis of both knees 05/07/2018 Effusion of left knee 05/07/2018 Social History Tobacco Use Types Packs/Day Years Used Date Smoking Tobacco: Never Smokeless Tobacco: Never Alcohol Use Standard Drinks/Week Comments Not Currently 0 (1 standard drink = 0.6 oz pur e alcohol) Comments No Sex and Gender Information Value Date Recorded Sex Assigned at Not on file Legal Sex Female 11:32 AM CERTIFIED NURSE MIDWIFE Gender Identity Female 06/29/2021 12:21 PM CERTIFIED NURSE MIDWIFE Sexual Orientation Not on file 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 Not on file Not on file Last Filed Vital Signs Vital Sign Reading Time Taken Comments Blood Pressure 120/70 05/21/2019 6:30 PM CERTIFIED NURSE MIDWIFE Pulse 68 05/21/2019 6:30 PM CERTIFIED NURSE MIDWIFE Temperature 36.4 C (97.5 F) 05/21/2019 6:30 PM CERTIFIED NURSE MIDWIFE Respiratory Rate 16 05/21/2019 6:30 PM CERTIFIED NURSE MIDWIFE Oxygen Saturation 100% 05/21/2019 6:30 PM CERTIFIED NURSE MIDWIFE Inhaled Oxygen Concentration - - Weight 84.3 kg (185 lb 12.8 oz) 022 11:02 AM CDT Height 168.3 cm (5' 6.25 ) 11/23/2021 1 1:02 AM CDT Body Mass Index 29.76 11/23/2021 11:02 AM CDT Plan of Treatment Not on file Medical Devices Implanted Type Area Diabetes Educator Device Identifier Shelf Expiration Date Model / Serial / Lot [employer] 6197-9-001 Simplex P Full Dose Radiopaque Preblend Cement Bone Tobramycin - S.0 - [id number] Implanted:Qty: 1 on 05/21/2019 by Neville Jamil MD at [facility] [employer] 08/02/2020 6197-9-00 1 / .0 / [id number] [employer] Femoral Component Implanted:Qty: 1 on 05/21/2019 by Neville Jamil MD at [facility] Right: Knee [employer] 02/21/2024 [id number] / 0 / [id number] Description:kf [employer] Tibial Baseplate Implanted:Qty: 1 on 05/21/2019 by Neville Jamil MD at [facility] Right: Knee [employer] [id number] / 0 / [id number] Description:gianfranco Pintoo Tibial Insert Implanted:Qty: 1 on 05/21/2019 by Neville Jamil MD at [facility] Right: Knee [employer] [id number] 01/14/2024 [id number] / 0 / [id number] Description:kf Explanted Type Area Diabetes Educator Device Identifier Shelf Expiration Date Model / Serial / Lot Neto Bone Pin 4.0 X 110mm Sterile - S.0 - [id number] Explanted:Qty: 1 on 05/21/2019 by Neville Jamil MD at [facility] Other - see comments [employer] / .0 / [id number] Neto Bone Pin 4 X 140mm Sterile - S.0 - [id number] Explanted:Qty: 1 on 05/21/2019 by Neville Jamil MD at [facility] Other - see comments [employer] / .0 / [id number] [employer] 6197-9-001 Simplex P Full Dose Radiopaque Preblend Cement Bone Tobramycin - [id number] Explanted:Qty: 1 on 05/21/2019 at [facility] [employer] 6197-9-00 1 / / Neto Checkpoint Kit Sterile - S.0 - [id number] Explanted:Qty: 1 on 05/21/2019 at [facility] [employer] NULL / .0 / [id number] Insurance [employer] [facility] [employer] [place] [employer] [place] Advance Directives For more information, please contact: [phone] * Full Code (Latest Code Status on File) Date Activated Date Inactivated Comments 05/21/2019 3:53 PM 05/21/2019 11:12 PM Care Teams Supervisor Industrial Garment Relationship Specialty Start Date End Date Magi Castro MD PCP - General Family Medicine 01/17/18
--- OUTSIDE RECORDS SUMMARY | 2024-09-04 10:25 | XMS_ITS | Clinical Summary ---
Author Organization [facility] Address [address] [place] [id number] Care Team Providers Care Offset Lithographic Press Setter Name Role Phone Magi Castro MD Primary Care Provider [phone] Allergies Active Allergy Reactions Criticality Noted Date [...] (03/25/2019): Added automatically from request for surgery [id number] Primary osteoarthritis of right knee 03/25/2019 Overview (04/26/2019): Added automatically from request for surgery [id number] Primary osteoarthritis of both knees 05/07/2018 Effusion of left knee 05/07/2018 Surgical History Surgery Date Site/Laterality Comments MENISCUS SURGERY 12/04/2015 - 01/03/2016 Right KNEE ARTHROSCOPY 06/05/1993 - 06/04/1994 Left TRIGGER FINGER RELEASE 06/05/2012 - 06/04/2013 Right right thumb COLONOSCOPY 06/05/2009 - 06/04/2010 Medical History Medical History Date Comments Arthritis Kidney stone Obesity Family History Medical History Relation Name Comments Arthritis Father Diabetes Father Arthritis Mother Arthritis Sister Relation Name Status Comments Father Alive Mother Alive Sister Social History Tobacco Use Types Packs/Day Years Used Date Smoking Tobacco: Never Smokeless Tobacco: Never Alcohol Use Standard Drinks/Week Comments Not Currently 0 (1 standard drink = 0.6 oz pur e alcohol) Comments No Sex and Gender Information Value Date Recorded Sex Assigned at Not on file Legal Sex Female 11:32 AM SERVICE DESK ASSOCIATE Gender Identity Female 06/29/2021 12:21 PM SERVICE DESK ASSOCIATE Sexual Orientation Not on file 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 Not on file Not on file Obstetrics History Last Filed Vital Signs Vital Sign Reading Time Taken Comments Blood Pressure 120/70 05/21/2019 6:30 PM SERVICE DESK ASSOCIATE Pulse 68 05/21/2019 6:30 PM SERVICE DESK ASSOCIATE Temperature 36.4 C (97.5 F) 05/21/2019 6:30 PM SERVICE DESK ASSOCIATE Respiratory Rate 16 05/21/2019 6:30 PM SERVICE DESK ASSOCIATE Oxygen Saturation 100% 05/21/2019 6:30 PM SERVICE DESK ASSOCIATE Inhaled Oxygen Concentration - - Weight 84.3 kg (185 lb 12.8 oz) 022 11:02 AM CDT Height 168.3 cm (5' 6.25 ) 11/23/2021 1 1:02 AM CDT Body Mass Index 29.76 11/23/2021 11:02 AM CDT Plan of Treatment Health Maintenance Due Date Last Done Comments Breast Cancer Screening-Mammogram 1958 Colon Cancer Screening-Colonoscopy 1960 Depression Screening 1958 Fall Risk Assessment 1960 Hepatitis C Screening 1960 Osteoporosis Screening-Bone Density Scan 1958 DTaP/Tdap/Td Vaccine (1 - Tdap) 1969 Hepatitis B Screening 01/22/1976 Pneumococcal vaccine 65+ (1 of 1 - PCV) 01/22/2008 Zoster Vaccine (1 of 2) 01/22/2008 Well Visit 65+ 2023 Influenza Vaccine (Season Ended) 2025 Medical Devices Implanted Type Area Gas Engineer Device Identifier Shelf Expiration Date Model / Serial / Lot [employer] 6197-9-001 Simplex P Full Dose Radiopaque Preblend Cement Bone Tobramycin - S.0 - [id number] Implanted:Qty: 1 on 05/21/2019 by Neville Jamil MD at [facility] 08/02/2020 6197-9-00 1 / .0 / [id number] [employer] Femoral Component Implanted:Qty: 1 on 05/21/2019 by Neville Jamil MD at [facility] Right: Knee [employer] 02/21/2024 [id number] / 0 / [id number] Description:kf [employer] Tibial Baseplate Implanted:Qty: 1 on 05/21/2019 by Neville Jamil MD at [facility] Right: Knee [employer] [id number] / 0 / [id number] Description:kf Neto Tibial Insert Implanted:Qty: 1 on 05/21/2019 by Neville Jamil MD at [facility] Right: Knee [employer] [id number] 01/14/2024 [id number] / 0 / [id number] Description:kf Explanted Type Area Gas Engineer Device Identifier Shelf Expiration Date Model / Serial / Lot Neto Bone Pin 4.0 X 110mm Sterile - S.0 - [id number] Explanted:Qty: 1 on 05/21/2019 by Neville Jamil MD at [facility] Other - see comments [employer] / .0 / [id number] Neto Bone Pin 4 X 140mm Sterile - S.0 - [id number] Explanted:Qty: 1 on 05/21/2019 by Neville Jamil MD at [facility] Other - see comments [employer] / .0 / [id number] [employer] 6197-9-001 Simplex P Full Dose Radiopaque Preblend Cement Bone Tobramycin - [id number] Explanted:Qty: 1 on 05/21/2019 at [facility] 6197-9-00 1 / / Neto Morrison Kit Sterile - S.0 - [id number] Explanted:Qty: 1 on 05/21/2019 at [facility] NULL / .0 / [id number] Insurance [employer] [place] [employer] [place] [facility] Advance Directives For more information, please contact: [phone] * Full Code (Latest Code Status on File) Date Activated Date Inactivated Comments 05/21/2019 3:53 PM 05/21/2019 11:12 PM Care Teams Offset Lithographic Press Setter Relationship Specialty Start Date End Date Magi Castro MD PCP - General Family Medicine 01/17/18
--- OUTSIDE RECORDS SUMMARY | 2024-09-04 10:25 | XMS_ITS | Clinical Summary ---
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 14 tablet Active Social History Tobacco Use Types Packs/Day Years Used Date Smoking Tobacco: Former Cigarettes Comments:Patient was a socia l smoker in the early 90s Comments Unknown Sex and Gender Information Value Date Recorded Sex Assigned at Not on file Legal Sex Female 8:04 AM CDT Gender Identity Not on file Sexual Orientation Not on file Last Filed Vital Signs Vital Sign Reading Time Taken Comments Blood Pressure 115/68 03/29/2023 9:08 AM CDT Pulse 71 03/29/2023 9:08 AM CDT Temperature - - Respiratory Rate - - Oxygen Saturation 98% 03/29/2023 9:08 AM CDT Inhaled Oxygen Concentration - - Weight 70 kg (154 lb 6.4 oz) 03/29/2023 9:08 AM CDT Height 168.9 cm (5' 6.5 ) 03/29/2023 9:08 AM CDT Body Mass Index 24.55 03/29/2023 9:08 AM CDT Plan of Treatment Health Maintenance Due Date Last Done Comments Colorectal Cancer Screening Colonoscopy (10 Years) 1958 Hepatitis C 01/22/1976 DTaP, Tdap and Td Vaccines (1 - Tdap) 1977 Mammogram Screening 1998 Dexa Scan (General) 2023 COVID-19 Vaccine ( - season) 2024 04/21/2022, 04/27/2021, 10/01/2020, Additional history exists RSV Immunization or 60+ Years (1 - 1-dose 75+ series) 2033 Zoster Vaccines Completed 06/23/2019, 03/13/2019 Pneumococcal Vaccine: 65+ Years Completed 02/09/2023 Meningococcal B Vaccine Aged Out No l onger eligible based on patient's age to complete this topic Meningococcal Vaccine Aged Out No alfred donna eligible based on patient's age to complete this topic RSV Immunizations Under 20 Months Aged Out No longer eligible based on patient's age to complete this topic Insurance [facility] Care Teams Lead Fire Protection Engineer Relationship Specialty Start Date End Date Martha Mariam [place] [address] PCP - General Physician [employer] 03/29/23 Nadeem Casiano MD [address] [place] [address] Consulting Physician RADIATION ONCOLOGY 03/29/23
--- OUTSIDE RECORDS SUMMARY | 2024-09-04 10:25 | XMS_ITS | Clinical Summary ---
Author Organization [email or web address] Address [address] [facility] Attn: Epic Prelude ADT [place] [phone] Care Team Providers Care Parking Inspector Name Role Phone Unavailable Primary Care Provider Unavailabl e Social History Tobacco Use Types Packs/Day Years Used Date Smoking Tobacco: Never Assessed Comments Unknown Sex and Gender Information Value Date Recorded Sex Assigned at Not on file Legal Sex Female 3:08 AM PLATE DRYING MACHINE TENDER Gender Identity Not on file Sexual Orientation Not on file Plan of Treatment Health Maintenance Due Date Last Done Comments DTAP/TDAP/TD VACCINES (1 - Tdap) 1977 FIT-DNA Q 3 years 2003 FIT/FOBT Q 1 year 2003 Flex Sig/CT Colonography Q 5 years 2003 PNEUMOCOCCAL VACCINE 50+ YEA RS (1 of 1 - PCV) 01/22/2008 ZOSTER VACCINE (1 of 2) 01/22/2008 BREAST CANCER SCREENING 11/16/2021 11/17/19 21, 11/16/2020, 08/01/2019, Additional history exists INFLUENZA VACCINE (#1) 2024 COLORECTAL SCREENING 07/18/2029 07/18/2019 Colorectal Cancer Screening 07/18/2029 RSV VACCINE (60+ or ) (1 - 1-dose 75+ series) 2033 OSTEOPOROSIS SCREENING Completed 08/01/2019
--- NOTE | 2024-09-04 10:46 | REHSTMBS ---
Assessment and note entered by Kita Huertas, DINING CAR SERVER Modified Barium Swallow Evaluation Feeding Type Recommended Oral Food Consistency Regular, Level 7 Liquid Consistency Thin (0) ST Clinical Summary The above pleasant and cooperative patient was seen for an outpatient modified barium swallow. She was alert and oriented and able to follow commands. She is currently on a regular diet and reports difficulty in that solids occasionally get stuck in her throat. She states that when that occurs, she can't even drink water until it clears (on its own). She wonders if she needs her throat stretched as her mother does x2 each year. She also reported that she has an upcoming sinus surgery. Oral mucosa is normal; natural dentition is in good condition; cursory informal oral peripheral exam revealed lingual and labial structures to be normal. She was able to dry swallow on command and clear vocal quality. The patient was seated for a lateral view and presented with 5cc of thin liquid barium via spoon , pudding consistency barium via a spoon, mixed liquid/solid consistency via a spoon, cracker coated with barium pudding via spoon, and uncontrolled thin liquid barium. This was presented via a cup & straw. Oral preparatory and oral phase symptoms: none. Pharyngeal phase symptoms: within functional limits; trace and very shallow laryngeal penetration occurred (age appropriate) but cleared with no aspiration risk. Esophageal stage symptoms: none. Overall, no aspiration occurred. Impressions: Normal swallow Ability No further ST is warranted at this time.
== END 2024-09-04 09:36 | disposition home or self-care (01) ==
PROVIDERS: PCP Nurse Practitioner; Visit Provider Otolaryngology
DX: R13.10 Dysphagia, unspecified (principal)
CPT/HCPCS: 92611

== ENCOUNTER 2024-11-14 04:41 | Day surgery (SDC) | payer BC, SELFPAY ==
[2024-11-04 10:28] VITALS: BMI 26.0
--- OUTSIDE RECORDS SUMMARY | 2024-11-14 04:44 | XMS_ITS | Clinical Summary ---
Author Organization [facility] Address [address] [place] [address] Care Team Providers Care Acid Tank Cleaner Name Role Phone Magi Castro MD Primary Care Provider [phone] Allergies Active Allergy Reactions Criticality Noted Date Comments Sulfa (Sulfonamide Antibiotics) Rash Medium 01/04 Medications simvastatin (ZOCOR) 20 mg tabletIndicatio ns:hyperlipidem ia Take 1 tablet (20 mg total) by mouth nightly 8 Active cholecalciferol (VITAMIN D-3) 1,000 unitIndications :Prevention of Vitamin D Deficiency Take 2 tablet/capsule (2,000 Units total) by mouth nightly Active clobetasoL (TEMOVATE) 0.05 [...] (03/25/2019): Added automatically from request for surgery [id number] Primary osteoarthritis of right knee 03/25/2019 Overview (04/26/2019): Added automatically from request for surgery [id number] Primary osteoarthritis of both knees 05/07/2018 Effusion of left knee 05/07/2018 Encounters Date Type Department Care Team Description 10/30/2024 3:00 PM CDT Office Visit [facility] Orthopedic and Sports Medicine [address] [place] [address] Gabriele Olsen PA Primary osteoarthritis of left knee (Primary Dx); Solares cyst, left 10/30/2024 2:25 PM CDT Ancillary Procedure [facility] Medical Group Imaging at [address] [address] 10/30/2024 2:20 PM CDT Ancillary Procedure [facility] Imaging at [address] [address] 10/16/2024 11:15 AM CDT Office Visit [facility] Orthopedic and Sports Medicine [address] [place] [address] Gabriele Olsen PA Glenohumeral arthritis, left (Primary Dx); Glenohumeral arthritis, right 10/16/2024 11:00 AM CDT Ancillary Procedure [facility] Medical Group Imaging at [address] [address] from Last 3 Months Surgical History Surgery Date Site/Laterality Comments MENISCUS [...] drink = 0.6 oz pur e alcohol) AUDIT-C Answer Date Recorded Q1: How often do you have a drink containing alc ohol? 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 Not on file Not on file Obstetrics History Last Filed Vital Signs Vital Sign Reading Time Taken Comments Blood Pressure 118/74 10/30/2024 2:40 PM CDT Pulse 79 10/30/2024 2:40 PM CDT Temperature 36.4 C (97.5 F) 05/21/2019 6:30 PM TIRE WRAPPER Respiratory Rate 16 05/21/2019 6:30 PM TIRE WRAPPER Oxygen Saturation 100% 05/21/2019 6:30 PM TIRE WRAPPER Inhaled Oxygen Concentration - - Weight 76.2 kg (168 lb) 10/30/2024 2:40 PM CDT Height 167.6 cm (5' 6) 10/30/2024 2:40 PM CDT Body Mass Index 27.12 10/30/2024 2:40 PM CDT Plan of Treatment Health Maintenance Due Date Last Done Comments Breast Cancer Screening-Mammogram 1958 Colon Cancer Screening-Colonoscopy 1960 Depression Screening 1958 Fall Risk Assessment 1958 Hepatitis C Screening 1958 Osteoporosis Screening-Bone Density Scan 1958 DTaP/Tdap/Td Vaccine (1 - Tdap) 1969 Hepatitis B Screening 01/22/1976 Pneumococcal vaccine 65+ (1 of 2 - PCV) 1977 Zoster Vaccine (1 of 2) 1977 Well Visit 65+ 2023 Influenza Vaccine (Season Ended) 2025 Medical Devices Implanted Type Area Bedspread Folder Device Identifier Shelf Expiration Date Model / Serial / Lot [employer] 6197-9-001 Simplex P Full Dose Radiopaque Preblend Cement Bone Tobramycin - S.0 - [id number] Implanted:Qty: 1 on 05/21/2019 by Neville Jamil MD at [facility] [employer] 08/02/2020 6197-9-00 1 / .0 / [id number] [employer] Neto Femoral Component Implanted:Qty: 1 on 05/21/2019 by Neville Jamil MD at [facility] Right: Knee [employer] 02/21/2024 [id number] / 0 / [id number] Description:gianfranco Duque Tibial Baseplate Implanted:Qty: 1 on 05/21/2019 by Neville Jamil MD at [facility] Right: Knee [employer] [id number] / 0 / [id number] Description:gianfranco Duque Tibial Insert Implanted:Qty: 1 on 05/21/2019 by Neville Jamil MD at [facility] Right: Knee [employer] [id number] 01/14/2024 [id number] / 0 / [id number] Description:kf Explanted Type Area Bedspread Folder Device Identifier Shelf Expiration Date Model / Serial / Lot Neto Bone Pin 4.0 X 110mm Sterile - S.0 - [id number] Explanted:Qty: 1 on 05/21/2019 by Neville Jamil MD at [facility] Other - see comments [employer] / .0 / [id number] Neto Bone Pin 4 X 140mm Sterile - S.0 - [id number] Explanted:Qty: 1 on 05/21/2019 by Neville Jamil MD at [facility] Other - see comments [employer] / .0 / [id number] [employer] 6197-9-001 Simplex P Full Dose Radiopaque Preblend Cement Bone Tobramycin - [id number] Explanted:Qty: 1 on 05/21/[address] [facility] [employer] 6197-9-00 1 / / Neto Checkpoint Kit Sterile - S.0 - [id number] Explanted:Qty: 1 on 05/21/[address] [facility] [employer] NULL / .0 / [id number] Procedures Procedure Name Priority Date/Time Associated Diagnosis Comments XR PELVIS 1 OR 2 VIEWS Schedule Routine, Read Routine (OP Routine) 10/30/2024 2:35 PM CDT Primary osteoarthritis of left knee XR KNEE LEFT 4 OR MORE VIEWS Schedule Routine, Read Routine (OP Routine) 10/30/2024 2:35 PM CDT Primary osteoarthritis of left knee XR SHOULDER BILATERAL 2+ VIEWS Schedule Routine, Read Routine (OP Routine) 10/16/2024 11:10 AM CDT Glenohumeral arthritis, left from Last 3 Months Results * XR Pelvis 1 or 2 Views (10/30/2024 2:35 PM CDT) Anatomical Region Laterality Modality Body, Pelvis N/A Digital Radiogra phy Narrative 10/30/2024 3:38 PM CDT A weight-bearing AP view of the pelvis taken today in the office demonstrate no evidence of fracture or acute bony abnormality . There is no bone lesions noted. There is no radiopaque foreign body. There are mild degenerative changes noted in the femoral acetabular joints. [facility] Lianna Newgent PA IMG XR PROCEDURES Final Res ult * XR Knee Left 4 or More Views (10/30/2024 2:35 PM CDT) Anatomical Region Laterality Modality Lower Extremities, Knee Left Digital Radiography Narrative 10/30/2024 3:12 PM CDT Four views of the left knee are negative for acute fracture dislocation or osseous lesion. Patella predominant tricompartmental arthritic changes are noted with a bipartite versus old malunion of a patellar fracture with a small medial fragment. Narrowing noted in the medial compartment of the left knee. Postsurgical changes noted on the right knee consistent with a medial compartment Uni arthroplasty. [facility] Lianna Newgent PA IMG XR PROCEDURES Final Res ult * XR Shoulder Bilateral 2 or More Views (10/16/2024 11:10 AM CDT) Anatomical Region Laterality Modality Upper Extremities, Shoulder Digi jessica Radiography Narrative 10/16/2024 11:32 AM CDT Four views of bilateral shoulders are negative for acute fracture dislocation or lesion. Moderate to severe glenohumeral joint arthritis is noted bilaterally left greater than right. Large inferior spurring noted on bilateral humeral heads. Mild to moderate arthritic change noted in bilateral acromioclavicular joints. Type 1 acromion is noted bilaterally. Gabriele MENDEZ IMG XR PROCEDURES Final Res ult from Last 3 Months Insurance [email or web address] [employer] [place] Advance Directives For more information, please contact: [phone] * Full Code (Latest Code Status on File) Date Activated Date Inactivated Comments 05/21/2019 3:53 PM 05/21/2019 11:12 PM Care Teams Acid Tank Cleaner Relationship Specialty Start Date End Date Magi Castro MD PCP - General Family Medicine 01/17/18
--- OUTSIDE RECORDS SUMMARY | 2024-11-14 04:44 | XMS_ITS | Encounter Summary ---
Author Organization [facility] Address [address] [place], [place] [address] [address] Care Team Providers Care Real Estate Rental Agent Name Role Phone Magi Castro MD Primary Care Provider [phone] Encounter Details Date Type Department Care Team (Late st Contact Info) Description 04/15/2021 Lab Requisition [facility] [address] 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 Gender Identity Not on file Sexual Orientation Not on file documented as of this encounter Plan of Treatment Not on file documented as of this encounter Procedures Procedure Name Priority Date/Time Associated Diagnosis Comments DERMATOPATHOLOGY Routine 04/14/2021 12:0 0 AM ASSOC[employer]ATE [employer]OM[employer] documented in this encounter Results * DERMATOPATHOLOGY (04/14/2021 12:00 AM ASSOCIATE [employer]AN [employer]OM[employer]) Case Report Dermatopathology Report Case: [id number] Authorizing Provider: Cristofer Corbett MD Collected: 04/14/2021 12:00 AM Ordering Location: [facility] Received: 04/15/2021 12:53 PM Pathologist: Alisson Grace MD Specimens: A) - Skin, midline lumbar back B) - Skin, left para lumbar back 2:24 PM [facility] DERMATOPATHOLOGY LABORATORY Final Diagnosis Specimen A. SKIN, midline lumbar back: EPIDERMOID CYST (L72.0) Specimen B. SKIN, left para lumbar back: DILATED PORE OF NIKKI (L70.8) 2:24 PM [facility] DERMATOPATHOLOGY [facility]ORATORY at [address] [employer] [employer] Clinical History A-B: R/O neoplasm. 1 2:24 PM [facility] DERMATOPATHOLOGY [facility]ORATORY Gross Description Specimen A: Received is one formalin filled container labeled with the patient's name and designated midline lumbar back. The specimen consists of a punch biopsy measuring [id number], bisected. Jar 0. Specimen B: Received is one formalin filled container labeled with the patient's name and designated left para lumbar back. The specimen consists of a punch biopsy measuring [id number], bisected. Jar 0. 2:24 PM [facility] DERMATOPATHOLOGY [facility]ORATORY Microscopic Description Specimen A. SKIN, midline lumbar back: Within the dermis, there is a space lined by epithelium that resembles normal epidermis and the infundibular portion of the hair follicle. Specimen B. SKIN, left para lumbar back: There is a central, broad epidermal invagination lined by epithelium with a prominent rete pattern. 2:24 PM [facility] DERMATOPATHOLOGY [facility]ORATORY Disclaimer An external and internal positive and negative controls are appropriate for the histochemical, immunohistochemical and immunofluorescence stain(s) in this case (if any), except where stated explicitly. The performance characteristics of the stain(s) cited in this report were developed and its performance characteristic determined by the Dermatopathology Laboratory at [facility], directed by Dr. Augustina Grace. These tests need not be, and therefore are not, approved by the [place] Food and Drug Administration. The tests are used for clinical purposes. Billing Codes Specimen Charges Stain Charges 47251 80017 1 1 1 2:24 PM [facility] DERMATOPATHOLOGY LABORATORY Embedded Images 2:24 PM [facility] DERMATOPATHOLOGY LABORATORY Pathology/Cytology TISSUE SPECIMEN FROM SKIN / Unknown 04/14/2021 04/15/2021 12:53 PM [employer]OC[employer] Miscellaneous samples (specimen) TISSUE SPECIMEN FROM SKIN / Unknown 04/14/2021 04/15/2021 12:53 PM ASSOC[employer] Cristofer Corbett MD LAB - PATHOLOGY/CYTOLOGY ORD ERABLES Final Result DERMATOPATHOLOGY LABORATORY [facility] - Department of Dermatology [facility] Medicine [address] [place] [address], [address] [phone] documented in this encounter Visit Diagnoses Not on filedocumented in this encounter Care Teams Real Estate Rental Agent Relationship Specialty Start Date End Date Magi Castro MD [address] [place] [address] PCP - General 07/19/19 documented as of this encounter
--- OUTSIDE RECORDS SUMMARY | 2024-11-14 04:44 | XMS_ITS | Clinical Summary ---
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
--- OUTSIDE RECORDS SUMMARY | 2024-11-14 04:44 | XMS_ITS | Clinical Summary ---
Author Organization [facility] Address [address] [place] [address] Care Team Providers Care Banquet Coordinator Name Role Phone Magi Castro MD Primary Care Provider [phone] Source Comments [facility],non-owned Affiliates and Associated Physician Practices is amultiple site organization consisting of ambulatory clinics and hospital sitesin [place], [place], [place] and [place]. This disclosure is being madepursuant to the Care Everywhere program and may not contain all information available regarding this patient. 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
--- OUTSIDE RECORDS SUMMARY | 2024-11-14 04:44 | XMS_ITS | Data Portability ---
Author Organization [place] [facility] [employer], Main Office Address [address] [place] [address] Care Team Providers Care Consumer Marketing Manager Name Role Phone ANNIA MANRIQUE Primary Care Provider ANNIA MANRIQUE Referring Provider [phone] Assessment No assessment recorded. Plan of Treatment Reminders Order Date Submit Date Provider Last Modified By Organization Details Last Modified Time Details Appointments None recorded. Lab None recorded. Referral None recorded. Procedures None recorded. Surgeries endoscopy, nasal/sinus , with frontal sinus exploration (SURG) 2024 025 Not available 09:46:12 Imaging None recorded. Medication Orders Medrol (Corbin) 4 mg tablets in a dose pack 2024 025 [facility] [address] [place], [address], 5 08:55:57 cefdinir 300 mg capsule [address] [facility] [address] [place], [address], 5 08:55:54 Diflucan 150 mg tablet 2024 025 [facility] [address] [place], [address], 5 15:12:11 Patient TargetsNo targets recorded. Patient Instructions Encounter Date Encounter Id Patient Instructions Last Modified By Organization Details Last Modified Time 07/31/2024 [id number] Patient prescrib ed Medrol Dosepak and cefdinir for antimicrobial coverage and inflammation reduction. She will have a sinus CT completed. We will follow up when those results become available. [email or web address] Not available 07/31/2024 15:12:42 10/10/2024 [id number] patient is doing great she will return as needed [email or web address] Not available 10/10/2024 11:15:05 Reason for Referral None Reported. Results Created Date Observation Date Name Description Value Unit Range Abnormal Flag Note LastModifiedBy Organization Detail LastModifiedTime 08/20/1908/09/2024 CT, sinus es, w/o contr ast No observ ation record ed. [address] Imaging [address], [place], [address], 08/19/2024 11:01:10 09/05/19 25 09/04/2024 FL, modif ied ct coreas study No observ ation record ed. [address] Radiology [address] [facility] [address] [place] [address], [place], [address], 09/04/2024 14:10:41 09/10/19 25 09/09/2024 [place], modif ied [facility] No observ ation record ed. [facility] [address] [facility] [address] [facility], [place], [address], 09/09/2024 13:31:39 Result Notes None recorded. Problems Name Problem SNOMED Code Status Onset Date Resolution Date Notes Provider Name and Address Organization Details Recorded Time Disorder of bursa of shoulder region 40368975 Active Not Available [facility] 3 13:30:42 Chronic sinusitis 85465943 Active 2024 Tequila Washington RN null, [employer] [facility] [employer] 5 15:04:45 Chronic sinusitis 78159265 Active 2024 DIEGO Hernández [address] [address], [place], [address] , [facility] [employer] [facility] [employer] 5 15:11:08 Dysfunctio n of right eustachian tube 2445159764949 101 Active 2024 DIEGO Hernández [address] [address], [place], [address] , [facility] [employer] [facility] 5 15:12:13 Chronic frontal sinusitis 77221050 Active 2024 Flaco Muse MD [address] [facility] [address], [place], [address] , [facility] [employer] [facility] 5 11:14:58 Dysphagia 59612449 Active 2024 Flaco Muse MD [address] [facility], [facility] [address], [place], [address] , [facility] [employer] [facility] 5 14:32:50 Problem Notes None recorded. Procedures Surgical History Date Name Laterality Status Provider Name and Address Organization Details Recorded Time ENDOSCOPY, NASAL/SINUS, WITH FRONTAL SINUS EXPLORATION (SURG) completed Tequila Washington RN [facility] [employer] 10/10/2024 08:10:02 Imaging Results None recorded. Procedure Notes None recorded. Medical Equipment None Reported. Allergies Allergen ID Allergen Name Allergen Category Reaction Reaction Severity Criticality Documentation Date Start Date Code Code System Note Provider Name and Address Organization Details Recorded Time 90403 Substance with sulfonami de structure and antibacte rial mechanism of action (substanc e) medicatio n Not available Not available Not available 07/31/2024 81479 8003 SNOMED RASH A CHILD Tequila Washington RN [facility], [facility] [employer] [facility] 5 14:33:19 Medications Name Sig Start Date Stop Date Status Note LastModified by Organization Details LastModified Time fluconazole 150 mg tablet TAKE 1 TABLET BY MOUTH ONCE DAILY active Not Available Not Available No t Available prednisone 20 mg tablet 07/31 completed Not Available Not Available Not Available clobetasol 0.05 % topical cream APPLY APROX 1 GRAM EXTERNALL Y TO VULVAR AREA ONCE WEEKLY active Not Available Not Available No t Available valacyclovi r 500 mg tablet TAKE 1 TABLET BY MOUTH TWICE DAILY FOR 3 DAYS 07/31 completed Not Available Not Available Not Available hydrocodone 7.5 mg-acetamin ophen 325 mg tablet TAKE 1 TABLET BY MOUTH EVERY 4 HOURS 10/10 completed Not Available Not Available Not Available [...] completed Not Available Not Available Not Available Yuvafem 10 mcg vaginal tablet INSERT 1 TABLET VAGINALLY TWICE WEEKLY active Not Available Not Available No t Available Paxlovid 300 mg (150 mg x [...] Address Organization Details Last Updated DateTime 07/31/2024 25644.93 g 26.2 kg/m2 170.18 cm 98 [degF] Tequila Washington RN [facility] [employer] 07/31/2024 14:36:52 Date Recorded Body height Body mass index (BMI) Body weight Body temperature Provider Name and Address Organization Details Last Updated DateTime 08/22/2024 170.18 cm 26.3 kg/m2 66021.52 g 97.1 [degF] MINE Rosas [facility] [employer] [facility] 08/22/2024 14:09:04 Date Recorded Body height Body mass index (BMI) Body weight Body temperature Provider Name and Address Organization Details Last Updated DateTime 10/10/2024 170.18 cm 26 kg/m2 38072.33 g 98 [degF] Tequila Washington RN [place] [facility] [employer] 10/10/2024 11:00:05 Social History None recorded. Functional Status Question Answer Note LastModified by Organization D etails LastModified Time What is your level of alcohol consumption? None Information not available 07/31/2024 Mental Status None recorded. Family History Relationship [...] SNOMED-CT Code Diagnosis ICD10 Code Diagnosis Note [id number] [facility] [place] [address] [place] [address] 07/31/2024 14:15:14 07/31/2024 15:13:20 Chronic sinusitis 43103688 J32.9 Dysfunctio n of right eustachian tube 5510901180 538539 H69.91 [id number] Flaco Muse MD [facility] [place] [address] [place] [address] 08/22/2024 14:01:08 08/28/2024 15:26:22 Chronic frontal sinusitis 71023475 J32.1 Dysphagia 13037012 R13.1 0 [id number] Flaco Muse MD [facility] [place] [address] [place] [address] 10/10/2024 10:55:19 10/14/2024 11:55:17 Chronic frontal sinusitis 52116762 J32.1 Health Concerns Section Related Observation LastModified by Organization Detai ls LastModified Time None Recorded Concern Status LastModified by Organization Details LastModified Time None Recorded Advance Directives Directive None Recorded Payers Insurance Date Sequence Insurance Name Policy Number Policy Freedman Covered Member ID Freedman Member ID Guarantor Name 10/14/2024 1 [place] [id number] Lance Gutiérrez [id number] Chanel Lo Brock Notes Date Note Type Note Provider Name [...] any recent imaging done. DIEGO Hernández [address], [place], [address], [employer] 07/31/2024 15:12:46 08/22/2024 text/html this patient has had epistaxis and a sinus CT demonstrated right frontal sinusitis and a very mild septal deviation. In addition she reports dysphagia for pills and some solids. Flaco Muse MD [address], [address], [place], [address], [employer] 08/22/2024 14:33:27 10/10/2024 text/html The patient is d oing great following right frontal sinus exploration and drainage Flaco Muse MD [address], [address], [place], [address], [employer] 10/10/2024 11:15:27 OBGyn Episode No OBEpisode recorded.
--- OUTSIDE RECORDS SUMMARY | 2024-11-14 04:44 | XMS_ITS | Continuity of Care Document ---
Author Organization [facility] Address [address] [place] [address] [address] [place] [address] Phone Care Team Providers Care Conservation Scientist Name Role Phone Perez BECKWITH, Wood Unavailable Unavaila ble Procedures Procedure Date CATARACT SURG W/IOL, 1 STAGE POSTOP FOLLOW-UP VISIT CATARACT SURG W/IOL, 1 STAGE OFFICE/OUTPATIENT VISIT, [facility] OPHTHALMIC BIOMETRY OPHTHALMIC BIOMETRY Advance Directives Directive Yes / No Effective Date File Name No Information Encounters Encounter Description Practice Location Reason(s) For Visit Diagnoses Date Provider Providers Copied on Encounter [facility], [address] [place] [address], [id number], [place] tel:[phone] [facility] No Information 7 Perez Muir. [address] [facility], [address], [place], [place], [id number], [place]. tel:[phone] Referring Provider: Wood luong, [address], [place], [address] . tel:[phone] [facility], [address] [place] [address], [id number], [place] tel:[phone] OPH CONSULT GARLAND SMITH glare (chief complaint) Age-related nuclear cataract, left eyePresence of pseudophakia 7 Perez Muir. [address], [address], [place], [place], [id number], [place]. tel:[phone] Referring Provider: Wood luong, [address], [place], [address] . tel:[phone] [facility], [address] [place] [address], [id number], tel:[phone] [facility] No Information 7 Perez Wood. [address], [address], [id number], . tel:[phone] Referring Provider: Wood luong, [address], [place], [address] . tel:[phone] OFFICE/OUTPA TIENT VISIT, [facility], [address] [place] [address], [id number], tel:[phone] [facility] No Information 7 Krlucaamy Wood. [address], [address], [place], [place], [id number], . tel:[phone] Referring Provider: Wood luong, [address], [place], [address] . tel:[phone] Family History Family Member Type Diagnosis Age At Onset No Information Payers Payer name Insurance type Covered democrat ID Authoriza tion(s) No Information Social History [...]
--- OUTSIDE RECORDS SUMMARY | 2024-11-14 04:44 | XMS_ITS | Referral Summary ---
Author Organization [facility] Address [address] [place] [address] Care Team Providers Care Treasury Director Name Role Phone Magi Castro MD Primary Care Provider [phone] Encounters Date Type Department Care Team Description 10/30/2024 2:25 PM CDT Ancillary Procedure [facility] at [address] [address] 10/30/2024 2:20 PM CDT Ancillary Procedure [facility] at [address] [address] 10/30/2024 3:00 PM CDT Office Visit [facility] Orthopedic [facility] Sports Medicine [address] [place] [phone] Gabriele Olsen PA Primary osteoarthritis of left knee (Primary Dx); Solares cyst, left 10/16/2024 11:00 AM CDT Ancillary Procedure [facility] Imaging at [address] [address] 10/16/2024 11:15 AM CDT Office Visit [facility] Orthopedic and Sports Medicine [address] [place] [phone] Gabriele Olsen PA Glenohumeral arthritis, left (Primary Dx); Glenohumeral arthritis, right from Last 3 Months Allergies Active Allergy Reactions Criticality Noted Date [...] (03/25/2019): Added automatically from request for surgery [id number] Primary osteoarthritis of right knee 03/25/2019 Overview (04/26/2019): Added automatically from request for surgery [id number] Primary osteoarthritis of both knees 05/07/2018 Effusion [...] on file 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 Gender Identity Female 06/29/2021 12:21 PM AIR CREW SUPERVISOR Sexual Orientation Not on file 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 on file Not on file Not on file Last Filed Vital Signs Vital Sign Reading Time Taken Comments Blood Pressure 118/74 10/30/2024 2:40 PM CDT Pulse 79 10/30/2024 2:40 PM CDT Temperature 36.4 C (97.5 F) 05/21/2019 6:30 PM AIR CREW SUPERVISOR Respiratory Rate 16 05/21/2019 6:30 PM AIR CREW SUPERVISOR Oxygen Saturation 100% 05/21/2019 6:30 PM AIR CREW SUPERVISOR Inhaled Oxygen Concentration - - Weight 76.2 kg (168 lb) 10/30/2024 2:40 PM CDT Height 167.6 cm (5' 6) 10/30/2024 2:40 PM CDT Body Mass Index 27.12 10/30/2024 2:40 PM CDT Plan of Treatment Not on file Medical Devices Implanted Type Area Street Light Mechanic Device Identifier Shelf Expiration Date Model / Serial / Lot [employer] 6197-9-001 Simplex P Full Dose Radiopaque Preblend Cement Bone Tobramycin - S.0 - [id number] Implanted:Qty: 1 on 05/21/2019 by Neville Jamil MD at [facility] [employer] 08/02/2020 6197-9-00 1 / .0 / [id number] Austin Neto Femoral Component Implanted:Qty: 1 on 05/21/2019 by Neville Jamil MD at [facility] Right: Knee [employer] 02/21/2024 [id number] / 0 / [id number] Description:gianfranco Austin Neto Tibial Baseplate Implanted:Qty: 1 on 05/21/2019 by Neville Jamil MD at [facility] Right: Knee [employer] [id number] / 0 / [id number] Description:gianfranco Pintoo Tibial Insert Implanted:Qty: 1 on 05/21/2019 by Neville Jamil MD at [facility] Right: Knee [employer] [id number] 01/14/2024 [id number] / 0 / [id number] Description:kf Explanted Type Area Street Light Mechanic Device Identifier Shelf Expiration Date Model / Serial / Lot Neto Bone Pin 4.0 X 110mm Sterile - S.0 - [id number] Explanted:Qty: 1 on 05/21/2019 by Neville Jamil MD at [facility] Other - see comments [employer] / .0 / [id number] Neto Bone Pin 4 X 140mm Sterile - S.0 - [id number] Explanted:Qty: 1 on 05/21/2019 by Neville Jamil MD at [facility] Other - see comments [employer] / .0 / [id number] [employer] 6197-9-001 Simplex P Full Dose Radiopaque Preblend Cement Bone Tobramycin - [id number] Explanted:Qty: 1 on 05/21/[address] [facility] [employer] 6197-9-00 1 / / Neto Checkpoint Kit Sterile - S.0 - [id number] Explanted:[facility] NULL / .0 / [id number] Procedures Procedure Name Priority Date/Time Associated [...] changes noted in the femoral acetabular joints. us Gabriele MENDEZ IMG XR PROCEDURES Final Res ult * [...] consistent with a medial compartment Uni arthroplasty. Gabriele MENDEZ IMG XR PROCEDURES Final Res ult * [...] Res ult from Last 3 Months Insurance [facility] [place] Advance Directives For more information, please contact: [phone] * Full Code (Latest Code Status on File) Date Activated Date Inactivated Comments 05/21/2019 3:53 PM 05/21/2019 11:12 PM Care Teams Treasury Director Relationship Specialty Start Date End Date Magi Castro MD PCP - General Family Medicine 01/17/18
--- OUTSIDE RECORDS SUMMARY | 2024-11-14 04:44 | XMS_ITS | Clinical Summary ---
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
[2024-11-14 08:12] VITALS: BP 121/65; PULSE 78; RESP 16; TEMP 36.1; O2SAT 100
[2024-11-14] MEDS: LACTATED RINGERS 1,000 ML 150 ML IV CONT (08:18)
--- NOTE | 2024-11-14 08:48 | PM.HPGS ---
History of Present Illness History of Present Illness Consent: Risks, benefits, and alternatives have been discussed and questions answered. Patient agrees to proceed with procedure. Chief complaint: screening malignant neoplasm of colon Narrative: Chanel Gutiérrez is a 64 year old female with intermittent dysphagia, never had egd. Had colon polyp in 2019 Review of Systems Review of Systems: All systems reviewed & are unremarkable except as noted in HPI and below PMFSH Past Medical History Medical History Lymphoma Follicular, dx 03/2023 Type 2 diabetes mellitus Tear of medial meniscus of right knee HLD (hyperlipidemia) Surgical History Surgical History History of cataract surgery Hx of colonoscopy History of knee surgery Family History Family History Sibling Family history of scoliosis Father HLD (hyperlipidemia) Other Family history of arthritis Social History Social History Smoking status: Never smoker Second hand tobacco smoke exposure: Yes Alcohol intake: never Substance use: never Substance use type: does not use Lack of Transportation: No Lack of Food: Never True Current Housing: I Have Housing Concerned About Future Housing: No Difficulty Paying Gas/Electric Bills: No Difficulty Paying for Meds: No Currently Unemployed: No Education: High School Diploma/GED Difficulty w/ Childcare or Family Care: No Living arrangements: with family Gender identity (if verbalized by the patient): Female Sexual Orientation (if Verbalized by the Patient): Straight or Heterosexual Spiritual care concerns: No Agree to blood products: Yes Meds Home Medications and Allergies Home Medications ?Medication ?Instructions ?Recorded ?Confirmed ?Type simvastatin 20 mg tablet 20 mg PO DAILY #90 tabs 08/06/24 11/14/24 Rx Allergies Allergy/AdvReac Type Severity Reaction Status Date / Time Sulfa (Sulfonamide Allergy Unknown rash Verified 11/14/24 08:11 Antibiotics) Vital Signs Vital Signs - 24 hr 11/14/24 08:12 Temperature 97 F L Pulse Rate 78 Respiratory Rate 16 Blood Pressure 121/65 Pulse Oximetry 100 Oxygen Delivery Room Air Exam Const: General: comfortable and no acute distress HENMT: Face/Nose/Sinus: Normal nares present Eyes: General: appearance normal, both eyes and all related structures Neck: Neck: no JVD Resp: Auscultation: clear to auscultation bilaterally Cardio: Rate: regular rate Rhythm: regular rhythm GI: Inspection: non-distended GI Palp: Yes Soft to palpation Skin: General skin exam: normal color Neuro: General: gait normal Speech: normal speech Extrem: General: normal to inspection Psych: Mental Status: mental status grossly normal Assessment and Plan Assessment and plan (1) History of colon polyps: Code(s): Z86.0100 - Personal history of colon polyps, unspecified Status: Acute Assessment and Plan: colonoscopy (2) Dysphagia: Code(s): R13.10 - Dysphagia, unspecified Status: Acute Assessment and Plan: egd with bx
[2024-11-14] MEDS: BENZOCAINE (*SP) 60 ML SPRAY CAN (HURRICAINE) 1 SPRAY MUCOUS MEM (08:57)
--- NOTE | 2024-11-14 09:05 | P.PNAN_ITS ---
Anes - Initial Pre Proc Eval Procedure: Operation Date: 11/14/24 09:30 Proposed Procedures p Colonoscopy - Bhaskar Gross MD s Esophagogastroduodenoscopy - Bhaskar Gross MD Date/Time: 11/14/24 09:05 Surgeon: Bhaskar Gross MD Pre Op Diagnosis: screening malignant neoplasm of colon Patient Data Age: 64 Gender: F Height: 1.7 m Weight: 73.3 kg Last Vital Signs Temp 97 F L 11/14/24 08:12 Pulse 78 11/14/24 08:12 Resp 16 11/14/24 08:12 BP 121/65 11/14/24 08:12 Pulse Ox 100 11/14/24 08:12 O2 Del Method Room Air 11/14/24 08:12 Allergies Allergy/AdvReac Type Severity Reaction Status Date / Time Sulfa (Sulfonamide Allergy Unknown rash Verified 11/14/24 08:11 Antibiotics) Home Medications ?Medication ?Instructions ?Recorded ?Confirmed ?Type simvastatin 20 mg tablet 20 mg PO DAILY #90 tabs 08/06/24 11/14/24 Rx Patient hx anesthesia problems: none Family hx anesthesia problems: none Results Review: All pre-operative results and documents have been reviewed as part of the pre- operative evaluation. [facility] Past Medical History Medical History Lymphoma Follicular, dx 03/2023 Type 2 diabetes mellitus Tear of medial meniscus of right knee HLD (hyperlipidemia) Surgical History Surgical History History of cataract surgery Hx of colonoscopy History of knee surgery Family History Family History Sibling Family history of scoliosis Father HLD (hyperlipidemia) Other Family history of arthritis Social History Social History Smoking status: Never smoker Second hand tobacco smoke exposure: Yes Alcohol intake: never Substance use: never Substance use type: does not use Lack of Transportation: No Lack of Food: Never True Current Housing: I Have Housing Concerned About Future Housing: No Difficulty Paying Gas/Electric Bills: No Difficulty Paying for Meds: No Currently Unemployed: No Education: High School Diploma/GED Difficulty w/ Childcare or Family Care: No Living arrangements: with family Gender identity (if verbalized by the patient): Female Sexual Orientation (if Verbalized by the Patient): Straight or Heterosexual Spiritual care concerns: No Agree to blood products: Yes Anes - Eval Final PreProcedure Day of Procedure 11/14/24 09:05 Patient weight: normal Heart: regular rate and rhythm Lungs: clear to auscultation Airway: Mallampati scale class II Neurological: alert and oriented Last oral intake: >/= 8 hours ASA classification: III Emergent: no Anesthetic plan: proceed Anesthesia type and monitoring: general GIVS and standard monitoring Results Review: All pre-operative results and documents have been reviewed as part of the pre- operative evaluation. Informed Consent: The patient's anesthetic plan and its attendant risks and benefits were discussed with the patient/family/POA. Questions were solicited and answers provided to the satisfaction of the patient/family/POA.
--- NOTE | 2024-11-14 09:10 | SUR.OPER ---
EGD end 905 COLONOSCOPY START 909
--- NOTE | 2024-11-14 09:12 | S_PTH ---
PATIENT: Chanel Gutiérrez LOC: [facility] Tran#:[id number] AGE/SX: 64/F ROOM: RE11/14/[address]: Bhaskar Gross MD : 1960 BED: DIS: 11/14/2024 SPEC #: [id number] RECD: 11/14/24 11:52 STATUS: ALTAF ALVARADO #: [id number] YING: 11/14/24 09:[address]: Bhaskar Gross DEPT: [facility] Surgical RECD BY: Kandace Torres ENTERED: 11/14/24 11:52 SP TYPE: Surgical OTHR DR: Magi CastroMD Tissues: A - Gastric Biopsy B - Esophageal Biopsy C - Colon Polypectomy Procedures: Hematoxylin and Eosin Stain Gross and Microscopic Level 4
[2024-11-14 09:31] VITALS: BP 102/61; PULSE 65; RESP 18; O2SAT 99
[2024-11-14 09:41] VITALS: BP 98/63; PULSE 60; RESP 18; O2SAT 99
[2024-11-14 09:51] VITALS: BP 116/76; PULSE 58; RESP 18; O2SAT 99
== END 2024-11-14 10:02 | disposition home or self-care (01) ==
PROVIDERS: PCP Family Medicine; Referring Provider Nurse Practitioner; Visit Provider Internal Medicine Gastroenterology
PROC: 0DJD8ZZ Inspection of Lower Intestinal Tract, Via Natural or Artificial Opening Endoscopic (ICD-10-PCS; CPT 45378; principal; 2024-11-14 09:30)
PROC: 0DJ08ZZ Inspection of Upper Intestinal Tract, Via Natural or Artificial Opening Endoscopic (ICD-10-PCS; CPT 43239; 2024-11-14 09:30)
DX: Z12.11 Encounter for screening for malignant neoplasm of colon (principal); D12.2 Benign neoplasm of ascending colon; K21.00 Gastro-esophageal reflux disease with esophagitis, without bleeding; K22.2 Esophageal obstruction; E78.5 Hyperlipidemia, unspecified; E11.9 Type 2 diabetes mellitus without complications; Z98.890 Other specified postprocedural states; Z85.72 Personal history of non-Hodgkin lymphomas
CPT/HCPCS: 43239; 43249; 45385; 88305; C1726; J2003; J2704; J7120

== ENCOUNTER 2024-11-28 12:09 | Outpatient (CLI) | payer BC, SELFPAY ==
--- NOTE | ~2024-11-28 | DEXA_ITS ---
Bone Density Report Name: DEE COOK Age: 64 Sex: Female Ethnicity: White Date of : 1960 Indication: osteopenia; height loss; Referring Provider: APRIL HANNON Study: Bone densitometry was performed. Exam Date: November 28, 2024 Accession number: [id number] Bone Density: Region BMD T-score Z-score Classification AP Spine(L1-L4) 0.924 -1.1 0.8 Osteopenia Femoral Neck (Left) 0.638 -1.9 -0.3 Osteopenia Total Hip (Left) 0.710 -1.9 -0.6 Osteopenia Femoral Neck (Right) 0.671 -1.6 0.0 Osteopenia Total Hip (Right) 0.740 -1.7 -0.3 Osteopenia Total Hip Mean 0.725 -1.8 -0.5 Osteopenia World Health Organization criteria for BMD impression classify patients as: Normal (T-score at or above -1.0), Osteopenia (T-score between -1.0 and -2.5), or Osteoporosis (T-score at or below -2.5). 10-year Fracture Risk(1): Major Osteoporotic Fracture 10% Hip Fracture 1.5% Reported Risk Factors: [place] (), Neck BMD=0.638, BMI=26.8 (1) FRAX(R) Version 3.08. Fracture probability calculated for an untreated patient. Fracture probability may be lower if the patient has received treatment. Previous Exams: -- Region Exam Age BMD T-score BMD Change BMD Change Date g/cm2 vs Baseline vs Previous -- AP Spine (L1-L4) 11/28/2024 64 0.924 -1.1 -22.9%* -7.1%* 11/18/2021 61 0.995 -0.5 -17.0%* -3.7%* 08/01/2019 59 1.033 -0.1 -13.8%* -7.7%* 05/26/2015 55 1.119 0.7 -6.6%* -6.6%* 05/09/2012 52 1.199 1.4 Total Hip(Left) 11/28/2024 64 0.710 -1.9 -25.3%* -11.0%* 11/18/2021 61 0.798 -1.2 -16.1%* 0.4% 08/01/2019 59 0.795 -1.2 -16.4%* -10.1%* 05/26/2015 55 0.885 -0.5 -7.0%* -7.0%* 05/09/2012 52 0.951 0.1 Total Hip(Right) 11/28/2024 64 0.740 -1.7 -26.9%* -4.5%* 11/18/2021 61 0.775 -1.4 -23.5%* 1.7% 08/01/2019 59 0.762 -1.5 -24.7%* -17.3%* 05/26/2015 55 0.921 -0.2 -9.0%* -9.0%* 05/09/2012 52 1.012 0.6 -- *Denotes significance at 95% confidence level, LSC for AP Spine = 0.022 g/cm2, LSC for Total Hip = 0.027 g/cm2 Clinical Information Provided by Patient: Has used the following medications: Vitamin D, Calcium Patient maximum height was 68 Menopause Age: 52 Does not regularly consume dairy products Onset of menses at age 12 Number of children 0 Impression: The patient has low bone mass, based on the Left Total Hip T-score. The patient has an estimated ten-year risk of hip fracture of 1.5% and an estimated ten-year risk of major fracture of 10%, based on the WHO FRAX algorithm. The BMD for the AP Spine (L1-L4) decreased, changing by -7.1% since the last DXA exam. The BMD for the Total Hip(Left) decreased, changing by -11.0% since the last DXA exam. The BMD for the Total Hip(Right) decreased, changing by -4.5% since the last DXA exam. Discussion: BONE DENSITY IS LOW AT ONE OR MORE SKELETAL SITES. This patient's lowest T-score is low at one or more skeletal sites. It meets the World Health Organization's (WHO) criteria for ?low bone mass? (T-score between -1.0 and -2.5). The patient's 10-year risk of fracture as calculated by FRAX is less than the threshold where pharmacological therapy is recommended by the National Osteoporosis Foundation (NOF). However, all treatment decisions require clinical judgment and consideration of individual patient factors, including patient preferences, comorbidities, previous drug use, risk factors not captured in the FRAX model (e.g., frailty, falls, vitamin D deficiency, increased bone turnover, interval significant decline in bone density) and possible under or overestimation of fracture risk by FRAX. The patient should follow a healthful lifestyle (good nutrition with adequate calcium and vitamin D, and appropriate weight-bearing exercise). Follow-Up: Consider repeating this study in 2 years to reassess this patient's status, or sooner if there is some new clinical indication. Reported by: VIRGINIE on 11/28/2024 12:30:00 PM. Reviewed, dictated and finalized at location A.
== END 2024-11-28 12:10 | disposition home or self-care (01) ==
PROVIDERS: PCP Family Medicine; Visit Provider Obstetrics & Gynecology Gynecology
DX: M85.88 Other specified disorders of bone density and structure, other site (principal); M85.852 Other specified disorders of bone density and structure, left thigh; M85.851 Other specified disorders of bone density and structure, right thigh
CPT/HCPCS: 77080

== ENCOUNTER 2025-01-29 10:55 | Outpatient (CLI) | payer BC, SELFPAY ==
--- NOTE | ~2025-01-29 | MM_ITS ---
EXAMINATION: MM screening shon BI w ameya HISTORY: Screening TECHNIQUE: Craniocaudal and mediolateral oblique 3-D tomosynthesis images were obtained and synthetic 2-D images were generated. CAD analysis was submitted and interpreted. COMPARISON: Comparison to multiple prior studies sequentially, with oldest reviewed study dated 06/26/2018. BREAST PARENCHYMAL COMPOSITION: There are scattered areas of fibroglandular density. FINDINGS: There is no evidence of suspicious mass, calcification, or architectural distortion to suggest malignancy in either breast. Biopsy clip in the left breast. IMPRESSION: 1. No mammographic evidence of malignancy. 2. Recommend routine screening mammography in one year. BI-RADS Category 1: Negative Reviewed, dictated and finalized at location B.
== END 2025-01-29 10:56 | disposition home or self-care (01) ==
LOC: MICIMG 10:56
PROVIDERS: PCP Nurse Practitioner; Visit Provider Nurse Practitioner
DX: Z12.31 Encounter for screening mammogram for malignant neoplasm of breast (principal)
CPT/HCPCS: 77063; 77067